=== PATIENT | male | born 1980 | race Native Hawaiian/Other Pacific Islander ===

== ENCOUNTER 2018-05-23 17:05 | Inpatient (IN) ==
[2018-05-23] MEDS ORDERED: Sod Chloride 0.9% Inj 1,000 ML IV.SIG ONE (18:00)
[2018-05-23] MEDS ORDERED: Morphine Inj 4 MG/ML Vial IV.PUSH ONE (18:01)
[2018-05-23] MEDS ORDERED: Vancomycin Inj 1 GM/200 ML PIGGYBACK IV.SIG ONE (18:04)
--- NOTE | 2018-05-23 18:09 | ED ---
HPI General Chief complaint: Skin/Abscess/Foreign Body Stated complaint: skin Time Seen by Provider: 05/23/18 18:00 History of Present Illness HPI narrative: 37-year-old male with history of hidradenitis suppurativa who presents for evaluation of buttock/groin pain, redness, purulent drainage. He reports that he has been battling his condition for years, gradually getting worse. He reports that for the past few months he has had worsening pain in swelling and drainage in the groin region. He reports that one month ago he was started on rifampin 500 mg twice a day and clindamycin 300 mg twice a day which she has been using as prescribed by his benchroom shop optician. Symptoms have worsened over the past several days. He called his benchroom shop optician who recommended that he come to the emergency room. He reports chills and myalgias as well. Symptoms are are moderate, aggravated by sitting with no alleviating factors. He has no other complaints at this time. Related Data Home Medications Medication Instructions Recorded Confirmed clindamycin HCl 300 mg PO BID 05/23/18 05/23/18 escitalopram oxalate 10 mg PO DAILY 05/23/18 05/23/18 hydrocodone-acetaminophen 1 tab PO Q4-6H PRN 05/23/18 05/23/18 hydroxyzine HCl 25 mg PO HS 05/23/18 05/23/18 rifampin 300 mg PO BID 05/23/18 05/23/18 tramadol 50 mg PO Q6H PRN 05/23/18 05/23/18 Allergies Allergy/AdvReac Type Severity Reaction Status Date / Time Penicillins Allergy allergy Verified 05/23/18 18:00 Review of Systems ROS: all other systems reviewed are negative PMFSH Medical History Medical History Depression (Acute) Hidradenitis (Acute) Social History Social History Substance History: No History of Abuse Second Hand Smoke Exposure: Yes Smoking Status: Current every day smoker Tobacco Type: Cigarettes How Often Do You Have a Drink Containing Alcohol: Monthly or less Recent Travel in [facility] within the Last 8 Weeks: No Recent Out of Country Travel within the Last 8 Weeks: No Exam Narrative Exam Narrative: GENERAL: Well-developed well-nourished male who appears uncomfortable on initial examination. SKIN: Warm and dry. Multiple scarred nodules are noted to the bilateral buttocks, groin and proximal thighs, axillary regions. There is erythema to the buttocks bilaterally and medial proximal thighs. There are areas of purulent drainage on the medial aspect of the thighs. A wound culture was obtained. HEAD: Atraumatic. Normocephalic. EYES: Pupils equal and round. No scleral icterus. No injection or drainage. ENT: No nasal bleeding or discharge. Mucous membranes pink and moist. NECK: Trachea midline. No JVD. CARDIOVASCULAR: Regular rate and rhythm. No murmur appreciated. RESPIRATORY: No accessory muscle use. Clear to auscultation. Breath sounds equal bilaterally. GASTROINTESTINAL: Abdomen soft, non-tender, nondistended. Hepatic and splenic margins not palpable. MUSCULOSKELETAL: No obvious deformities. No clubbing. No cyanosis. No edema. NEUROLOGICAL: Awake and alert. No obvious cranial nerve deficits. Motor grossly within normal limits. Normal speech. Course Initial Documented Vital Signs Temperature 99.6 F 05/23/18 17:36 Pulse Rate 106 H 05/23/18 17:36 Respiratory Rate 18 05/23/18 17:36 Blood Pressure 115/71 05/23/18 17:36 Pulse Oximetry 100 05/23/18 17:36 Last Documented Vital Signs Temperature 99.9 F H 05/23/18 17:38 Pulse Rate 93 H 05/23/18 17:38 Respiratory Rate 16 05/23/18 18:44 Blood Pressure 112/68 05/23/18 17:38 Pulse Oximetry 98 05/23/18 17:38 Medical Decision Making MDM Narrative Medical decision making narrative: This is a patient with history of hidradenitis who presents with worsening buttocks and groin pain, redness, drainage, despite being on clindamycin and rifampin for 1 month. On examination he has evidence of hidradenitis with active infectious process in the bilateral proximal thighs and groin region. There is purulent drainage and a wound culture was obtained. His initial vital signs reveal heart rate of 106 and a temperature of 99.6. Lab work, CT of the pelvis, blood cultures will be obtained. The patient reports an allergy to penicillin. He was given IV Levaquin and vancomycin. Lab work is been reviewed. The patient has leukocytosis with WBC count of 17.1. CT pelvis reveals increased density in the subcutaneous fat of the posterior and inferior medial gluteus regions bilaterally more prominent on the left. Extending into the perineum. There is some air within the subcutaneous soft tissues on the left which would be consistent with superficial skin inflammatory/infectious process which is also consistent with examination. This is been slowly worsening for the past few weeks which would not be consistent with necrotizing fasciitis or fourniers. He does require admission for IV antibiotic therapy however as his symptoms have been worsening despite outpatient treatment. He is agreeable. Medical Screen Exam Complete: Yes Emergency Medical Condition: Yes Differential Diagnosis Differential Diagnosis: Cellulitis failed outpatient therapy, abscess, hidradenitis, sepsis, necrotizing fasciitis Lab Data Result diagrams: 05/23/18 18:25 05/23/18 18:25 Lab Results 05/23/18 05/23/18 05/23/18 Range/Units 18:25 18:25 18:25 WBC 17.1 H (4.0-11.0) th/mm3 RBC 4.46 L (4.50-5.90) mil/mm3 Hgb 11.2 L (13.0-17.0) gm/dL Hct 35.0 L (39.0-51.0) % MCV 78.4 L (80.0-100.0) fL MCH 25.2 L (27.0-34.0) pg MCHC 32.1 (32.0-36.0) % RDW 15.7 (11.6-17.2) % Plt Count 513 H (150-450) th/mm3 MPV 7.2 (7.0-11.0) fL Neut % (Auto) 82.2 H (16.0-70.0) % Lymph % (Auto) 10.7 (9.0-44.0) % [place] % (Auto) 5.1 (0.0-8.0) % Eos % (Auto) 1.8 (0.0-4.0) % Baso % (Auto) 0.2 (0.0-2.0) % Neut # (Auto) 14.1 H (1.8-7.7) th/mm3 Lymph # (Auto) 1.8 (1.0-4.8) th/mm3 [place] # (Auto) 0.9 (0.0-0.9) th/mm3 Eos # (Auto) 0.3 (0.0-0.4) th/mm3 Baso # (Auto) 0.0 (0.0-0.2) th/mm3 WBC Differential . Differential Comment Auto diff final Sodium 136 (136-145) meq/L Potassium 4.5 (3.5-5.1) meq/L Chloride 102 (98-107) meq/L Carbon Dioxide 28.4 (21.0-32.0) meq/L Anion Gap 6 (5-15) meq/L BUN 7 (7-18) mg/dL Creatinine 0.99 (0.60-1.30) mg/dL Estimated GFR 84 L (>89) mL/min Random Glucose 86 (74-106) mg/dL Lactic Acid 1.6 (0.4-2.0) mmol/L Calcium 8.6 (8.5-10.1) mg/dL Total Bilirubin 0.2 (0.2-1.0) mg/dL AST 25 (15-37) U/L ALT 15 (12-78) U/L Alkaline Phosphatase 76 (45-117) U/L Total Protein 9.0 H (6.4-8.2) g/dL Albumin 2.5 L (3.4-5.0) g/dL Imaging Data Radiologist's impression: Pelvis CT 05/23/18 18:00 CONCLUSION: 1. Increased density seen in the subcutaneous fat at the posterior and inferior medial gluteal regions bilaterally being more prominent on the left. Extends into the perineum. There is some air within the subcutaneous soft tissues on the left. This would be consistent with a superficial skin inflammatory/infectious process. No abscess is seen. 2. Inguinal adenopathy. 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 Discharge Plan Discharge Disposition Patient Disposition: 30 Still Patient Discharge Condition Condition: Stable Discharge Details Diagnosis: Cellulitis of multiple sites of buttock, Hidradenitis suppurativa Physicians Team ED Provider: Kym Ramirez ED Midlevel Provider: Issa Javed Primary Care Provider: NON STAFF,PROVIDER Rxs /Orders / Referrals /Forms Prescriptions: No Action clindamycin HCl 300 mg Capsule 300 mg PO BID RF: 0 hydrocodone-acetaminophen 5-325 mg Tablet 1 tab PO Q4-6H PRN (Reason: Pain) RF: 0 tramadol 50 mg Tablet 50 mg PO Q6H PRN (Reason: Pain) RF: 0 rifampin 300 mg Capsule 300 mg PO BID RF: 0 hydroxyzine HCl 25 mg Tablet 25 mg PO HS RF: 0 escitalopram oxalate 10 mg Tablet 10 mg PO DAILY RF: 0 Status ED Status: With Doctor
[2018-05-23 18:33] LABS: Baso % (Auto) 0.2 % (0.0-2.0); Eos # (Auto) 0.3 th/mm3 (0.0-0.4); Eos % (Auto) 1.8 % (0.0-4.0); Hemoglobin 11.2 gm/dL (13.0-17.0); Lymph # (Auto) 1.8 th/mm3 (1.0-4.8); Lymph % (Auto) 10.7 % (9.0-44.0); Mean Corpuscular HGB Conc 32.1 % (32.0-36.0); Mean Corpuscular Hemoglobin 25.2 pg (27.0-34.0); Mean Corpuscular Volume 78.4 fL (80.0-100.0); Mean Platelet Volume 7.2 fL (7.0-11.0); Mono # (Auto) 0.9 th/mm3 (0.0-0.9); Mono % (Auto) 5.1 % (0.0-8.0); Neut # (Auto) 14.1 th/mm3 (1.8-7.7); Neut % (Auto) 82.2 % (16.0-70.0); Platelet Count 513 th/mm3 (150-450); Red Blood Count 4.46 mil/mm3 (4.50-5.90); Red Cell Distribution Width 15.7 % (11.6-17.2); White Blood Count 17.1 th/mm3 (4.0-11.0)
[2018-05-23 19:00] LABS: Alanine Aminotransferase 15 U/L (12-78)
[2018-05-23 19:03] LABS: Alkaline Phosphatase 76 U/L (45-117)
[2018-05-23 19:14] LABS: Albumin 2.5 g/dL (3.4-5.0); Anion Gap 6 meq/L (5-15); Aspartate Aminotransferase 25 U/L (15-37); Blood Urea Nitrogen 7 mg/dL (7-18); Calcium 8.6 mg/dL (8.5-10.1); Carbon Dioxide 28.4 meq/L (21.0-32.0); Chloride 102 meq/L (98-107); Glomerular Filtration Rate 84 mL/min (>89); Glucose,Random 86 mg/dL (74-106); Potassium 4.5 meq/L (3.5-5.1); Sodium 136 meq/L (136-145)
--- NOTE | 2018-05-23 19:35 | CT ---
EXAM DATE: 05/23/2018 6:17 PM EDT AGE/SEX: 37 years / Male INDICATIONS: Hidradenitis on buttock and inguinal area. Evaluate for abscess. CLINICAL DATA: This is the patient's initial encounter. Patient reports that signs and symptoms have been present for 3 days and indicates a pain score of 7/10. MEDICAL/SURGICAL HISTORY: None. None. RADIATION DOSE: 5.29 CTDI (mGy) COMPARISON: No prior exams available for comparison. TECHNIQUE: Multiple contiguous helical axial images were obtained through pelvis following bolus inf usion of 75 ml Omnipaque 350 (iohexol) nonionic water-soluble contrast as a single exam dose. Imag es were obtained using multiple row detector helical technique. . Using automated exposure control an d adjustment of the mA and/or kV according to patient size, radiation dose was kept as low as reasona monica achievable to obtain optimal diagnostic quality images. DICOM format image data is available wm ctronically for review and comparison. FINDINGS: There is increased density seen in the subcutaneous fat over the gluteal regions bilaterally being mo re prominent on the left. This extends inferiorly along the gluteal fold and into the perineum and in feriorly to the medial upper thighs bilaterally being more prominent on the left. There is air within the subcutaneous superficial inflammatory process on the left side. Bowel/Mesentery: The bowel is unremarkable. Bladder: Contours are smooth. No filling defects are seen on the delayed images. Retroperitoneum: No evidence of deep pelvic adenopathy. Reproductive Organs: No abnormal masses or calcifications seen. Inguinal: There are prominent lymph nodes in the inguinal regions bilaterally. Bony Structures: Pars defects are seen at L5. There is mild anterior subluxation of L5 on S1. There are some mild bulging of the L5-S1 disc. Free Fluid: None seen. Post Contrast: No abnormal areas of enhancement seen. Other: There appears to be an incidental lipoma in the right lateral abdominal musculature measuring 2.1 x 1.1 cm. CONCLUSION: 1. Increased density seen in the subcutaneous fat at the posterior and inferior medial gluteal regio ns bilaterally being more prominent on the left. Extends into the perineum. There is some air within the subcutaneous soft tissues on the left. This would be consistent with a superficial skin inflammat ory/infectious process. No abscess is seen. 2. Inguinal adenopathy. 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 Electronically signed by: Sunil Bonilla MD 05/23/2018 7:34 PM EDT
[2018-05-23] MEDS ORDERED: Vancomycin Inj 1,000 MG in Sodium Chlor 0.9% Inj 250 ML IV.SIG ONE (20:00)
[2018-05-23] MEDS ORDERED: Bisacodyl 10 MG Supp RECTAL PRN (21:56)
[2018-05-23] MEDS ORDERED: Vancomycin Consult Pharmacy 1 EACH OTHER SCH (22:00)
--- NOTE | 2018-05-23 22:12 | P.HP ---
History of Present Illness Service: CP hospitalist Primary Care Physician: PROVIDER NON STAFF Chief Complaint: Sent by senior net engineer increasing pelvic and lower extremity cellulitis History of Present Illness: HPI narrative: 37-year-old male with history of hidradenitis suppurativa who presents for evaluation of buttock/groin pain, redness, purulent drainage. He reports that he has been battling his condition for years, gradually getting worse. He reports that for the past few months he has had worsening pain in swelling and drainage in the groin region. He reports that one month ago he was started on rifampin 500 mg twice a day and clindamycin 300 mg twice a day which she has been using as prescribed by his senior net engineer. Symptoms have worsened over the past several days. He called his senior net engineer who recommended that he come to the emergency room. He reports chills and myalgias as well. Symptoms are are moderate, aggravated by sitting with no alleviating factors. He has no other complaints at this time. In the ER patient was started on Levaquin and vancomycin cultures of the wounds have been obtained also blood as patient does have a white blood cell count of 17,000. Based on repeat labs in the morning he may need infectious disease consult. Denies chest pain shortness of breath nausea vomiting diarrhea. - Diagnosis (1) Cellulitis of multiple sites of buttock (2) Hidradenitis suppurativa Inpatient Certification: I certify that the inpatient services were ordered in accordance with Medicare regulations governing the order. This includes certification that hospital inpatient services are reasonable and necessary and in the case of services not specified as inpatient-only under 42 CFR 419.22(n), that they are appropriately provided as inpatient services in accordance to with the 2-midnight benchmark under 43 CFR 412.3(e) Estimated Total Length of Stay (Days): 3 Plans for Post Hospital Care: Not yet determined Review of Systems All other systems reviewed negative except as stated in HPI PMFSH - History History Provided By: Patient - Medical History Medical History: Medical History (Last Reviewed 05/23/18 @ 22:06 by Huy Smith MD) Depression Hidradenitis - Tobacco History Second Hand Smoke Exposure: Yes Tobacco Use In Past 30 Days: Yes Smoking Status: Current every day smoker Tobacco Type: Cigarettes - Alcohol History How Often Do You Have a Drink Containing Alcohol: Monthly or less - Substance Use History Substance History: No History of Abuse - Travel History Recent Travel in the [place] Within the Last 8 Weeks: No Recent Travel Out of the Country Within the Last 8 Weeks: No - Immunization History Tetanus Immunization: <5 Years Medications and Allergies Active Medications: Active Medications Hydrocodone Bitart/Acetaminophen ([place] 5/325) 1 tab PO Q4-6H PRN PRN Reason: Pain Al Hydroxide/Mg Hydroxide (Milk Of Magnesia Liq) 30 ml PO Q12H PRN PRN Reason: Mild Constipation Bisacodyl (Dulcolax Supp) 10 mg RECTAL DAILY PRN PRN Reason: SEVERE CONSITIPATION Escitalopram Oxalate (Lexapro) 10 mg PO DAILY SUE Hydroxyzine HCl (Atarax) 25 mg PO HS [facility] Pharmacy Profile Note (Vancomycin Consult Pharmacy) 0 mls @ 0 mls/hr OTHER UNSCH SUE Levofloxacin/Dextrose (Levaquin 750 Mg Premix Inj) 150 mls @ 100 mls/hr IV.SIG Q24H SUE Lactulose (Lactulose Liq) 30 ml PO DAILY PRN PRN Reason: SEVERE CONSITIPATION Senna/Docusate Sodium (Alta-Colace) 1 tab PO BID [facility] Sennosides (Senokot) 17.2 mg PO Q12H PRN PRN Reason: Moderate Constipation Sodium Chloride (Ns Flush) 2 ml IV.FLUSH PRN PRN PRN Reason: FLUSH AFTER USING IV ACCESS Last Admin: 05/23/18 21:15 Dose: 2 ml Allergies Allergy/AdvReac Type Severity Reaction Status Date / Time Penicillins Allergy allergy Verified 05/23/18 18:00 Home Medications Medication Instructions Recorded Confirmed Type clindamycin HCl 300 mg PO BID 05/23/18 05/23/18 History escitalopram oxalate 10 mg PO DAILY 05/23/18 05/23/18 History hydrocodone-acetaminophen 1 tab PO Q4-6H PRN 05/23/18 05/23/18 History hydroxyzine HCl 25 mg PO HS 05/23/18 05/23/18 History rifampin 300 mg PO BID 05/23/18 05/23/18 History tramadol 50 mg PO Q6H PRN 05/23/18 05/23/18 History Exam Vital signs: Vital Signs 05/23/18 17:36 05/23/18 17:38 05/23/18 18:44 Temperature 99.6 F 99.9 F H Pulse Rate 106 H 93 H Respiratory Rate 18 20 16 Blood Pressure 115/71 112/68 Pulse Oximetry 100 98 05/23/18 21:16 Temperature Pulse Rate 88 Respiratory Rate 16 Blood Pressure 110/70 Pulse Oximetry 97 Intake & Output 05/23/18 05/23/18 05/24/18 06:59 18:59 06:59 Intake Total 150 / 150 Balance 150 / 150 Weight 55.338 kg Intake: IV 150 / 150 Levaquin 750 mg Premix Inj 150 150 / 150 ML @ 100 mls/hr IV.SIG ONCE ONE Rx#:[id number] Narrative: GENERAL: SKIN: Warm and dry.multiple scarred nodules noted bilateral buttocks,groin, proximal thighs,,erythema to buttocks bilaterally and thighs,areas of purelent drainage HEAD: Normocephalic. EYES: No scleral icterus. No injection or drainage. NECK: Supple, trachea midline. No JVD or lymphadenopathy. CARDIOVASCULAR: Regular rate and rhythm without murmurs, gallops, or rubs. RESPIRATORY: Breath sounds equal bilaterally. No accessory muscle use. GASTROINTESTINAL: Abdomen soft, non-tender, nondistended. MUSCULOSKELETAL: No cyanosis, or edema. BACK: Nontender without obvious deformity. No CVA tenderness. Results - Labs CBC & Chem 7: 05/23/18 18:25 05/23/18 18:25 Labs: Laboratory Results - last 24 hr 05/23/18 05/23/18 05/23/18 18:25 18:25 18:25 WBC 17.1 H RBC 4.46 L Hgb 11.2 L Hct 35.0 L MCV 78.4 L MCH 25.2 L MCHC 32.1 RDW 15.7 Plt Count 513 H MPV 7.2 Neut % (Auto) 82.2 H Lymph % (Auto) 10.7 [place] % (Auto) 5.1 Eos % (Auto) 1.8 Baso % (Auto) 0.2 Neut # (Auto) 14.1 H Lymph # (Auto) 1.8 [place] # (Auto) 0.9 Eos # (Auto) 0.3 Baso # (Auto) 0.0 WBC Differential . Differential Comment Auto diff final Sodium 136 Potassium 4.5 Chloride 102 Carbon Dioxide 28.4 Anion Gap 6 BUN 7 Creatinine 0.99 Estimated GFR 84 L Random Glucose 86 Lactic Acid 1.6 Calcium 8.6 Total Bilirubin 0.2 AST 25 ALT 15 Alkaline Phosphatase 76 Total Protein 9.0 H Albumin 2.5 L - Imaging Impressions Pelvis CT 05/23/18 18:00 CONCLUSION: 1. Increased density seen in the subcutaneous fat at the posterior and inferior medial gluteal regions bilaterally being more prominent on the left. Extends into the perineum. There is some air within the subcutaneous soft tissues on the left. This would be consistent with a superficial skin inflammatory/infectious process. No abscess is seen. 2. Inguinal adenopathy. 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 Caprini VTE Risk Assessment Caprini VTE Risk Assessment: No/Low Risk (score <= 1) Caprini Risk Assessment Model: Point Value = 1 Point Value = 2 Point Value = 3 Point Value = 5 Age 41-60 Minor surgery BMI > 25 kg/m2 Swollen legs Varicose veins or History of unexplained or recurrent spontaneous Oral contraceptives or hormone replacement Sepsis (< 1 month) Serious lung disease, including pneumonia (< 1 month) Abnormal pulmonary function Acute myocardial infarction Congestive heart failure (< 1 month) History of inflammatory bowel disease Medical patient at bed rest Age 61-74 Arthroscopic surgery Major open surgery (> 45 min) Laparoscopic surgery (> 45 min) Malignancy Confined to bed (> 72 hours) Immobilizing plaster cast Central venous access Age >= 75 History of VTE Family history of VTE Factor V Leiden Prothrombin [id number] Lupus anticoagulant Anticardiolipin antibodies Elevated serum homocysteine Heparin-induced thrombocytopenia Other congenital or acquired thrombophilia Stroke (< 1 month) Elective arthroplasty Hip, pelvis, or leg fracture Acute spinal cord injury (< 1 month) Prophylaxis Regimen: Total Risk Factor Score Risk Level Prophylaxis Regimen 0-1 Low Early ambulation 2 Moderate Order ONE of the following: *Sequential Compression Device (SCD) *Heparin 5000 units SQ BID 3-4 Higher Order ONE of the following medications: *Heparin 5000 units SQ TID *Enoxaparin/Lovenox 40 mg SQ daily (WT < 150 kg, CrCl > 30 mL/min) *Enoxaparin/Lovenox 30 mg SQ daily (WT < 150 kg, CrCl > 10-29 mL/min) *Enoxaparin/Lovenox 30 mg SQ BID (WT < 150 kg, CrCl > 30 mL/min) AND/OR *Sequential Compression Device (SCD) 5 or more Highest Order ONE of the following medications: *Heparin 5000 units SQ TID (Preferred with Epidurals) *Enoxaparin/Lovenox 40 mg SQ daily (WT < 150 kg, CrCl > 30 mL/min) *Enoxaparin/Lovenox 30 mg SQ daily (WT < 150 kg, CrCl > 10-29 mL/min) *Enoxaparin/Lovenox 30 mg SQ BID (WT < 150 kg, CrCl > 30 mL/min) AND *Sequential Compression Device (SCD) Assessment and Plan - Assessment (1) Cellulitis of multiple sites of buttock Code(s): L03.317 - Cellulitis of buttock Status: Acute Plan: CT pelvis shows increased density in the subcutaneous fat of the posterior inferior medial gluteus regions bilaterally which extend into the perineum on CT there was subcutaneous soft tissue air consistent with a superficial inflammatory infectious process patient was started on vancomycin as well as Levaquin as he has an allergy to insulin and will follow-up labs (2) Hidradenitis suppurativa Code(s): L73.2 - Hidradenitis suppurativa Status: Acute Plan: As above IV antibiotic - Plan Further plan as case develops patient may need infectious disease consult as well Code Status: Full Discussed Condition With: Patient
[2018-05-24] MEDS: Morphine Inj 4 MG/ML Vial IV.PUSH PRN ×4 (00:59→19:09)
[2018-05-24 06:51] LABS: Baso # (Auto) 0.1 th/mm3 (0.0-0.2); Baso % (Auto) 0.4 % (0.0-2.0); Eos # (Auto) 0.3 th/mm3 (0.0-0.4); Eos % (Auto) 2.2 % (0.0-4.0); Hematocrit 32.5 % (39.0-51.0); Hemoglobin 10.1 gm/dL (13.0-17.0); Lymph # (Auto) 1.6 th/mm3 (1.0-4.8); Mean Corpuscular Hemoglobin 24.5 pg (27.0-34.0); Mean Corpuscular Volume 79.1 fL (80.0-100.0); Mono # (Auto) 0.9 th/mm3 (0.0-0.9); Mono % (Auto) 6.3 % (0.0-8.0); Neut # (Auto) 10.7 th/mm3 (1.8-7.7); Neut % (Auto) 79.1 % (16.0-70.0); Platelet Count 415 th/mm3 (150-450); Red Blood Count 4.11 mil/mm3 (4.50-5.90); Red Cell Distribution Width 15.2 % (11.6-17.2); White Blood Count 13.5 th/mm3 (4.0-11.0)
[2018-05-24 06:58] LABS: Mean Corpuscular HGB Conc 30.9 % (32.0-36.0)
[2018-05-24 07:11] LABS: Alanine Aminotransferase 8 U/L (12-78); Anion Gap 6 meq/L (5-15); Aspartate Aminotransferase 9 U/L (15-37); Blood Urea Nitrogen 6 mg/dL (7-18); Calcium 7.9 mg/dL (8.5-10.1); Chloride 103 meq/L (98-107); Glomerular Filtration Rate Greater Than 89 mL/min (>89); Glucose,Random 91 mg/dL (74-106); Potassium 4.2 meq/L (3.5-5.1); Sodium 140 meq/L (136-145)
[2018-05-24 07:12] LABS: Alkaline Phosphatase 61 U/L (45-117)
[2018-05-24] MEDS: Senna/Docusate Sodium 8.6/50 MG Tablet PO SCH ×2 (08:00→20:55)
[2018-05-24] MEDS: Escitalopram 10 MG Tablet PO SCH (08:00)
[2018-05-24] MEDS ORDERED: Influenza (Quadrivalent) Vaccine 0.5 ML Syringe IM ONE (09:00)
[2018-05-24] MEDS: Vancomycin Inj 650 MG in Sodium Chlor 0.9% Inj 250 ML IV.SIG SCH ×2 (10:10→20:55)
--- NOTE | 2018-05-24 12:59 | P.PNIM ---
Subjective Interval history: Follow up: Hidradenitis suppurativa and Cellulitis of multiple sites of buttock Patient endorses multiple areas of draining wounds (Right axilla, bilateral groin and bilateral buttocks) theses areas have been intermittently draining over since 2013 Patient has previously had excision of the right axilla patient has follows with outpatient dermatology Dr. Joshua and SEFERINO Dhaliwal and has previously been on Zyvox, ciprofloxacin, rifampin and clindamycin Physical Exam Vital signs: Vital Signs 05/23/18 17:36 05/23/18 17:38 05/23/18 18:44 Temperature 99.6 F 99.9 F H Pulse Rate 106 H 93 H Respiratory Rate 18 20 16 Blood Pressure 115/71 112/68 Pulse Oximetry 100 98 05/23/18 21:16 05/24/18 00:00 05/24/18 04:00 Temperature 100.3 F H 99.2 F Pulse Rate 88 98 H 98 H Respiratory Rate 16 18 18 Blood Pressure 110/70 101/52 L 96/53 L Pulse Oximetry 97 96 99 05/24/18 08:00 05/24/18 12:00 Temperature 98.5 F 99.0 F Pulse Rate 78 73 Respiratory Rate 18 18 Blood Pressure 92/55 L 86/50 L Pulse Oximetry 98 97 Intake & Output 05/23/18 05/24/18 05/24/18 18:59 06:59 18:59 Intake Total 1400 / 1400 256.5 / 256.5 Balance 1400 / 1400 256.5 / 256.5 Weight 55.338 kg 55.8 kg Intake: IV 1400 / 1400 256.5 / 256.5 Levaquin 750 mg Premix Inj 150 150 / 150 ML @ 100 mls/hr IV.SIG ONCE ONE Rx#:[id number] Vancomycin Inj 1,000 MG In NS 250 / 250 Inj 250 ML @ 200 mls/hr IV.SIG ONCE ONE Rx#:[id number] Vancomycin Inj 650 MG In NS Inj 256.5 / 256.5 250 ML @ 250 mls/hr IV.SIG Q12H [facility] Rx#:[id number] Other: # Voids 3 Date of Last Bowel Movement 05/24/18 Weight On Admission 55.9 kg Narrative: GENERAL: thin 37 year old male patient, in no acute distress SKIN: Warm and dry.multiple nodules noted bilateral buttocks, induration left buttock, bilateral groin, proximal thighs,erythema to buttocks bilaterally and thighs,areas of purulent drainage right axilla, bilateral buttocks and bilateral groin. HEAD: Normocephalic. EYES: No scleral icterus. No injection or drainage. CARDIOVASCULAR: Regular rate and rhythm RESPIRATORY: Breath sounds equal bilaterally. No accessory muscle use. GASTROINTESTINAL: Abdomen soft, non-tender, nondistended. Results - Labs CBC & Chem 7: 05/26/18 10:28 05/25/18 08:45 Laboratory Results - last 24 hr 05/23/18 05/23/18 05/23/18 18:25 18:25 18:25 WBC 17.1 H RBC 4.46 L Hgb 11.2 L Hct 35.0 L MCV 78.4 L MCH 25.2 L MCHC 32.1 RDW 15.7 Plt Count 513 H MPV 7.2 Neut % (Auto) 82.2 H Lymph % (Auto) 10.7 [place] % (Auto) 5.1 Eos % (Auto) 1.8 Baso % (Auto) 0.2 Neut # (Auto) 14.1 H Lymph # (Auto) 1.8 [place] # (Auto) 0.9 Eos # (Auto) 0.3 Baso # (Auto) 0.0 WBC Differential . Differential Comment Auto diff final Sodium 136 Potassium 4.5 Chloride 102 Carbon Dioxide 28.4 Anion Gap 6 BUN 7 Creatinine 0.99 Estimated GFR 84 L Random Glucose 86 Lactic Acid 1.6 Calcium 8.6 Total Bilirubin 0.2 AST 25 ALT 15 Alkaline Phosphatase 76 Total Protein 9.0 H Albumin 2.5 L 05/24/18 05/24/18 05:52 05:52 WBC 13.5 H RBC 4.11 L Hgb 10.1 L Hct 32.5 L MCV 79.1 L MCH 24.5 L MCHC 30.9 L RDW 15.2 Plt Count 415 MPV 7.0 Neut % (Auto) 79.1 H Lymph % (Auto) 12.0 [place] % (Auto) 6.3 Eos % (Auto) 2.2 Baso % (Auto) 0.4 Neut # (Auto) 10.7 H Lymph # (Auto) 1.6 [place] # (Auto) 0.9 Eos # (Auto) 0.3 Baso # (Auto) 0.1 WBC Differential . Differential Comment Auto diff final Sodium 140 Potassium 4.2 Chloride 103 Carbon Dioxide 31.0 Anion Gap 6 BUN 6 L Creatinine 0.89 Estimated GFR Greater than 89 Random Glucose 91 Lactic Acid Calcium 7.9 L Total Bilirubin 0.1 L AST 9 L ALT 8 L Alkaline Phosphatase 61 Total Protein 7.0 D Albumin 2.0 L Microbiology 05/23/18 18:25 Blood - Peripheral Aerobic Blood Culture - Preliminary No growth in 1 day 05/23/18 18:25 Blood - Peripheral Anaerobic Blood Culture - Preliminary No growth in 1 day 05/23/18 18:20 Blood - Peripheral Aerobic Blood Culture - Preliminary No growth in 1 day 05/23/18 18:20 Blood - Peripheral Anaerobic Blood Culture - Preliminary No growth in 1 day 05/23/18 18:20 Abscess - Buttock Gram Stain - Final - Imaging Impressions Pelvis CT 05/23/18 18:00 CONCLUSION: 1. Increased density seen in the subcutaneous fat at the posterior and inferior medial gluteal regions bilaterally being more prominent on the left. Extends into the perineum. There is some air within the subcutaneous soft tissues on the left. This would be consistent with a superficial skin inflammatory/infectious process. No abscess is seen. 2. Inguinal adenopathy. 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 Assessment and Plan - Assessment (1) Hidradenitis suppurativa Code(s): L73.2 - Hidradenitis suppurativa Status: Acute Plan: Hidradenitis suppurativa and Cellulitis of Right axilla, bilateral groin and bilateral buttocks per patient these areas have been intermittently draining over since 2013 Patient has previously had excision of the right axilla patient has follows with outpatient dermatology Dr. Joshua and ID Paz Dhaliwal and has previously been on Zyvox, ciprofloxacin, rifampin and clindamycin Currently on Levaquin and vancomycin (with pharmacy consult) Consult ID Consult plastic surgery, 05/24 Dr. Mane discussed the case with Dr. Royal who agrees to see the patient today multiple wound cultures taken blood cultures pending [place] and Morphine as needed for pain Check RPR, hepatitis panel, HIV, CMP, PT, PTT and chlamydia (with patient's consent) Depression Continue home Lexapro DVT prophylaxis with SCDs (2) Cellulitis of multiple sites of buttock Code(s): L03.317 - Cellulitis of buttock Status: Acute - Attending Attestation Patient examined. Assessment and plan formulated with Felicitas Darden PA-C. I agree with the above.
--- NOTE | 2018-05-24 13:37 | XR ---
EXAM DATE: 05/24/2018 12:00 AM EDT AGE/SEX: 37 years / Male INDICATIONS: No chest pain or shortness of breath. CLINICAL DATA: This is the patient's initial encounter. Patient reports that signs and symptoms have been present for 1 day and indicates a pain score of 0/10. MEDICAL/SURGICAL HISTORY: . Hidradenitis on buttock and inguinal area None. COMPARISON: No prior exams available for comparison. FINDINGS: A single AP view of the chest demonstrates the lungs to be symmetrically aerated without evidence of mass, infiltrate or effusion. The cardiomediastinal contours are unremarkable. Osseous structures a re intact. CONCLUSION: Negative for an acute process Electronically signed by: Sonu Merino MD 05/24/2018 1:36 PM EDT
[2018-05-24 13:38] LABS: Activated Partial Thrombo Time 35.5 sec (24.3-30.1); Prothrombin Time 10.3 sec (9.8-11.6)
[2018-05-24 14:45] LABS: Hepatitis A IgM Antibody Nonreactive (Nonreactive)
[2018-05-24 15:04] LABS: Hepatitits B Surface Antigen Nonreactive (Nonreactive)
--- NOTE | 2018-05-24 15:50 | P.CONID ---
History of Present Illness Service: Infectious Disease Consult date: 05/24/18 Requesting Physician: Getachew Mane Reason for Consult: Evaluation and Mment of abscesses right axilla, bilateral buttocks,groin. Primary Care Provider: PROVIDER NON STAFF Chief Complaint: Sent by warper creeler increasing pelvic and lower extremity cellulitis History of Present Illness: is a 37 y/o [place] male with history of hidradenitis suppurativa who presents for evaluation of buttock/groin pain, redness and purulent drainage. He reports that he has been battling his condition for years, gradually getting worse. He reports that for the past few months he has had worsening pain in swelling and drainage in the groin region. He reports that one month ago he was started on rifampin 500 mg twice a day and clindamycin 300 mg twice a day which she has been using as prescribed by his warper creeler. Symptoms have worsened over the past several days. He called his warper creeler who recommended that he come to the emergency room. In the ER patient was started on Levaquin and vancomycin cultures of the wounds have been obtained also blood as patient does have a white blood cell count of 17,000. Based on repeat labs in the morning he may need infectious disease consult. Denies chest pain shortness of breath nausea vomiting diarrhea. He reports chills and myalgias as well. Pain symptoms are are moderate, aggravated by sitting with no alleviating factors. He has no other complaints at this time. He reports no prior botox injections at this site says his disease was too advanced per dermatology and was recommended to undergo surgery. He reports having right axillary abscess drained a year or so back and was told he may have MRSA infection but he is not sure. 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 He currently does not work. ID consulted for Evaluation and [place] of infected abscesses Right axilla, groin and buttock area secondary to Hiddradenitis suppuritiva. Review of Systems All other systems reviewed negative except as stated in HPI PMFSH - History History Provided By: Patient, Medical Record - Medical History Medical History: Medical History (Last Reviewed 05/23/18 @ 22:06 by Huy Smith MD) Depression Hidradenitis - Tobacco History Second Hand Smoke Exposure: No Tobacco Use In Past 30 Days: Yes Smoking Status: Heavy tobacco smoker Tobacco Type: Cigarettes - Alcohol History How Often Do You Have a Drink Containing Alcohol: 2 to 4 times a month - Substance Use History Substance History: No History of Abuse - Travel History Recent Travel in the USA Within the Last 8 Weeks: No Recent Travel Out of the Country Within the Last 8 Weeks: No - Immunization History Tetanus Immunization: <5 Years Hx Influenza Vaccine This Season: No Medications and Allergies Active Medications: Active Medications Hydrocodone Bitart/Acetaminophen ([place] 5/325) 1 tab PO Q4H PRN PRN Reason: PAIN SCALE 1 TO 5 Last Admin: 05/24/18 04:13 Dose: 1 tab Al Hydroxide/Mg Hydroxide (Milk Of Magnesia Liq) 30 ml PO Q12H PRN PRN Reason: Mild Constipation Bisacodyl (Dulcolax Supp) 10 mg RECTAL DAILY PRN PRN Reason: SEVERE CONSITIPATION Escitalopram Oxalate (Lexapro) 10 mg PO DAILY [facility] Last Admin: 05/24/18 08:00 Dose: 10 mg Hydroxyzine HCl (Atarax) 25 mg PO HS [facility] Pharmacy Profile Note (Vancomycin Consult Pharmacy) 0 mls @ 0 mls/hr OTHER UNSCH [facility] Levofloxacin/Dextrose (Levaquin 750 Mg Premix Inj) 150 mls @ 100 mls/hr IV.SIG Q24H [facility] Vancomycin HCl 650 mg/ Sodium (Chloride) 256.5 mls @ 250 mls/hr IV.SIG Q12H [facility] Last Infusion: 05/24/18 10:59 Dose: Infused Lactulose (Lactulose Liq) 30 ml PO DAILY PRN PRN Reason: SEVERE CONSITIPATION Miscellaneous Information ([facility] Ordered Lab Info) 0 each OTHER ONCE ONE Stop: 05/25/18 08:46 Morphine Sulfate (Morphine Inj) 4 mg IV.PUSH Q6H PRN PRN Reason: PAIN SCALE 6 TO 10 Last Admin: 05/24/18 12:01 Dose: 4 mg Senna/Docusate Sodium (Alta-Colace) 1 tab PO BID [facility] Last Admin: 05/24/18 08:00 Dose: 1 tab Sennosides (Senokot) 17.2 mg PO Q12H PRN PRN Reason: Moderate Constipation Sodium Chloride (Ns Flush) 2 ml IV.FLUSH PRN PRN PRN Reason: FLUSH AFTER USING IV ACCESS Last Admin: 05/23/18 21:15 Dose: 2 ml Allergies Allergy/AdvReac Type Severity Reaction Status Date / Time Penicillins Allergy Mild Itching Verified 05/24/18 16:25 Home Medications Medication Instructions Recorded Confirmed Type clindamycin HCl 300 mg PO BID 05/23/18 05/23/18 History escitalopram oxalate 10 mg PO DAILY 05/23/18 05/23/18 History hydrocodone-acetaminophen 1 tab PO Q4-6H PRN 05/23/18 05/23/18 History hydroxyzine HCl 25 mg PO HS 05/23/18 05/23/18 History rifampin 300 mg PO BID 05/23/18 05/23/18 History tramadol 50 mg PO Q6H PRN 05/23/18 05/23/18 History Exam Vital signs: Vital Signs 05/23/18 17:36 05/23/18 17:38 05/23/18 18:44 Temperature 99.6 F 99.9 F H Pulse Rate 106 H 93 H Respiratory Rate 18 20 16 Blood Pressure 115/71 112/68 Pulse Oximetry 100 98 05/23/18 21:16 05/24/18 00:00 05/24/18 04:00 Temperature 100.3 F H 99.2 F Pulse Rate 88 98 H 98 H Respiratory Rate 16 18 18 Blood Pressure 110/70 101/52 L 96/53 L Pulse Oximetry 97 96 99 05/24/18 08:00 05/24/18 12:00 05/24/18 13:21 Temperature 98.5 F 99.0 F 96.8 F L Pulse Rate 78 73 78 Respiratory Rate 18 18 18 Blood Pressure 92/55 L 86/50 L 105/62 Pulse Oximetry 98 97 97 Intake & Output 05/23/18 05/24/18 05/24/18 18:59 06:59 18:59 Intake Total 1400 / 1400 256.5 / 256.5 Balance 1400 / 1400 256.5 / 256.5 Weight 55.338 kg 55.8 kg Intake: IV 1400 / 1400 256.5 / 256.5 Levaquin 750 mg Premix Inj 150 150 / 150 ML @ 100 mls/hr IV.SIG ONCE ONE Rx#:[id number] Vancomycin Inj 1,000 MG In NS 250 / 250 Inj 250 ML @ 200 mls/hr IV.SIG ONCE ONE Rx#:[id number] Vancomycin Inj 650 MG In NS Inj 256.5 / 256.5 250 ML @ 250 mls/hr IV.SIG Q12H [facility] Rx#:[id number] Other: # Voids 3 Date of Last Bowel Movement 05/24/18 Weight On Admission 55.9 kg Narrative: GENERAL: Well-nourished well-developed, not in acute distress SKIN: Right axilla with scarring and tenderness noted. Purulent discharge could be expressed upon minimal pressure. Groin with tenderness and scarring noted. Bilateral right more than left tenderness and induration noted. HEAD: Atraumatic. Normocephalic. No temporal or scalp tenderness. EYES: Pupils equal round and reactive. Scleral icterus. No injection or drainage. No petechia ENT: Nothing abnormal detected NECK: Trachea midline. Supple, nontender, no meningeal signs. CARDIOVASCULAR: HS audible. RESPIRATORY: Clear to auscultation bilaterally. GASTROINTESTINAL: Abdomen soft nontender. MUSCULOSKELETAL: Extremities without clubbing, cyanosis. NEUROLOGICAL: Alert oriented 3. Nonfocal. Psych cooperative IV line sites ok. Results - Labs CBC & Chem 7: 05/24/18 05:52 05/24/18 05:52 Labs: Laboratory Results - last 24 hr 05/23/18 05/23/18 05/23/18 18:25 18:25 18:25 WBC 17.1 H RBC 4.46 L Hgb 11.2 L Hct 35.0 L MCV 78.4 L MCH 25.2 L MCHC 32.1 RDW 15.7 Plt Count 513 H MPV 7.2 Neut % (Auto) 82.2 H Lymph % (Auto) 10.7 [place] % (Auto) 5.1 Eos % (Auto) 1.8 Baso % (Auto) 0.2 Neut # (Auto) 14.1 H Lymph # (Auto) 1.8 [place] # (Auto) 0.9 Eos # (Auto) 0.3 Baso # (Auto) 0.0 WBC Differential . Differential Comment Auto diff final PT INR APTT Sodium 136 Potassium 4.5 Chloride 102 Carbon Dioxide 28.4 Anion Gap 6 BUN 7 Creatinine 0.99 Estimated GFR 84 L Random Glucose 86 Lactic Acid 1.6 Calcium 8.6 Total Bilirubin 0.2 AST 25 ALT 15 Alkaline Phosphatase 76 Total Protein 9.0 H Albumin 2.5 L Hepatitis A IgM Ab Hep Bs Antigen Hep B Core IgM Ab Hep C IgG Ab 05/24/18 05/24/18 05/24/18 05:52 05:52 13:15 WBC 13.5 H RBC 4.11 L Hgb 10.1 L Hct 32.5 L MCV 79.1 L MCH 24.5 L MCHC 30.9 L RDW 15.2 Plt Count 415 MPV 7.0 Neut % (Auto) 79.1 H Lymph % (Auto) 12.0 [place] % (Auto) 6.3 Eos % (Auto) 2.2 Baso % (Auto) 0.4 Neut # (Auto) 10.7 H Lymph # (Auto) 1.6 [place] # (Auto) 0.9 Eos # (Auto) 0.3 Baso # (Auto) 0.1 WBC Differential . Differential Comment Auto diff final PT INR APTT Sodium 140 Potassium 4.2 Chloride 103 Carbon Dioxide 31.0 Anion Gap 6 BUN 6 L Creatinine 0.89 Estimated GFR Greater than 89 Random Glucose 91 Lactic Acid Calcium 7.9 L Total Bilirubin 0.1 L AST 9 L ALT 8 L Alkaline Phosphatase 61 Total Protein 7.0 D Albumin 2.0 L Hepatitis A IgM Ab Nonreactive Hep Bs Antigen Nonreactive Hep B Core IgM Ab Nonreactive Hep C IgG Ab Nonreactive 05/24/18 13:15 WBC RBC Hgb Hct MCV MCH MCHC RDW Plt Count MPV Neut % (Auto) Lymph % (Auto) [place] % (Auto) Eos % (Auto) Baso % (Auto) Neut # (Auto) Lymph # (Auto) [place] # (Auto) Eos # (Auto) Baso # (Auto) WBC Differential Differential Comment PT 10.3 INR 1.0 APTT 35.5 H Sodium Potassium Chloride Carbon Dioxide Anion Gap BUN Creatinine Estimated GFR Random Glucose Lactic Acid Calcium Total Bilirubin AST ALT Alkaline Phosphatase Total Protein Albumin Hepatitis A IgM Ab Hep Bs Antigen Hep B Core IgM Ab Hep C IgG Ab - Imaging Impressions Pelvis CT 05/23/18 18:00 CONCLUSION: 1. Increased density seen in the subcutaneous fat at the posterior and inferior medial gluteal regions bilaterally being more prominent on the left. Extends into the perineum. There is some air within the subcutaneous soft tissues on the left. This would be consistent with a superficial skin inflammatory/infectious process. No abscess is seen. 2. Inguinal adenopathy. 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 Chest X-Ray 05/24/18 00:00 CONCLUSION: Negative for an acute process Assessment and Plan - Plan Infected abscesses Right axilla, Cellulitis and abscess possible in right groin Cellulitis and abscess in buttock area Hydradenitis suppurativa. Recs: [facility] Navas reviewed allergy: amoxicillin caused mild rash in past. No airway or lip swelling s/o severe allergy Start Cefepime IV Continue Vanco IV target 10-15. Follow cultures Follow clinical course dw patient and : about Cefepime IV challenge. Patient agreeable discussed the risk benefit ratio. Agree needs plastics evaluation to explore under anaesthesia and drain as needed.
[2018-05-25] MEDS: Morphine Inj 4 MG/ML Vial IV.PUSH PRN ×4 (00:18→18:19)
--- NOTE | 2018-05-25 05:23 | P.CON ---
History of Present Illness Service: Plastic Surgery Consult date: 05/24/18 Requesting Physician: Getachew Mane Reason for Consult: Hidradenitis multiple body areas Primary Care Provider: PROVIDER NON STAFF Chief Complaint: Sent by farm equipment maintenance supervisor increasing pelvic and lower extremity cellulitis History of Present Illness: Thanks for the consult Patient seen May 24, 2018 approx 5:30 pm Patient started noticing beginning of skin abscesses in the left axilla around 2013 - has never cleared fully. Now involves Left axilla, both medial thighs, buttocks, perineum and parts of scrotal skin. Has some rolled / thick bands of skin over the left medial thigh buttock area that makes lying on his back or left side more painful. Never had any surgical intervention. He did consult a farm equipment maintenance supervisor after his PCP care a couple of years back and has been given oral antibiotics off and on. This time around, he became much worse despite getting oral antibiotics for last 3-4 days and has been admitted at the [facility] through ER - currently on IV antibiotics. Had several wound cultures taken - pending. No local dressing or hygiene care so far. Patient is not diabetic, smokes everyday, has not smoked since in hospital. No drug abuse, no alcohol abuse. H&P reviewed, depression is the only medical issue noted besides hidradenitis. Local examination of the Left axilla showed extensive areas of hidradenitis - small openings and a fair amount of drainage - covers the arm side, axillary vault and chest wall side - over all 12-15 cm x 8 cm area. Heavy scar tracks noted, Both thighs - extensive area of hidradenitis and partial areas of keloid scars- Left side nearly twice as big, - approx 25 x 15 cm on left side. perineum and back of scrotum, both and patchy areas on both buttocks - again 20 x 15 cm aggregate or more. No acute bleeding or hematoma in the area, drainage is thin mucopurulent, slight smell. Labs and CT results reviewed - no gross deep abscess / necrotizing fasciitis findings. Rec: Discussed the nature of the disease process and relevant microanatomy. A surgical excision going beyond the glands - in normal fatty planes and excision of any deeper tracks encountered explained, possible involvement and damage to neurovascular structure - particularly in the axilla explained as well. Overall blood loss during surgery can be diminished and controlled using tumescent injection of saline and Epi, but postoperative bleeding still possible. May need blood transfusion if there is significant blood loss in perioperative period. His WBC count is high - will watch for response to the IV antibiotics, no clear signs of generalized sepsis. He should continue to get the IV antibiotics and care with the help of ID consult as well. Discussed with Dr. Mane - patient is willing to have surgery, I will try to schedule him on Sunday evening at the earliest, or possibly on Sunday. PMF - History History Provided By: Patient, Medical Record - Medical History Medical History: Medical History (Last Reviewed 05/23/18 @ 22:06 by Huy Smith MD) Depression Hidradenitis - Tobacco History Second Hand Smoke Exposure: No Tobacco Use In Past 30 Days: Yes Smoking Status: Heavy tobacco smoker Tobacco Type: Cigarettes - Alcohol History How Often Do You Have a Drink Containing Alcohol: 2 to 4 times a month - Substance Use History Substance History: No History of Abuse - Travel History Recent Travel in the [place] Within the Last 8 Weeks: No Recent Travel Out of the Country Within the Last 8 Weeks: No - Immunization History Tetanus Immunization: <5 Years Hx Influenza Vaccine This Season: No Medications and Allergies Active Medications: Active Medications Hydrocodone Bitart/Acetaminophen ([place] 5/325) 1 tab PO Q4H PRN PRN Reason: PAIN SCALE 1 TO 5 Last Admin: 05/24/18 16:24 Dose: 1 tab Al Hydroxide/Mg Hydroxide (Milk Of [place] Liq) 30 ml PO Q12H PRN PRN Reason: Mild Constipation Bisacodyl (Dulcolax Supp) 10 mg RECTAL DAILY PRN PRN Reason: SEVERE CONSITIPATION Enoxaparin Sodium (Lovenox Inj) 30 mg SQ DAILY [facility] Escitalopram Oxalate (Lexapro) 10 mg PO DAILY [facility] Last Admin: 05/24/18 08:00 Dose: 10 mg Hydroxyzine HCl (Atarax) 25 mg PO HS [facility] Last Admin: 05/24/18 20:55 Dose: 25 mg Pharmacy Profile Note (Vancomycin Consult Pharmacy) 0 mls @ 0 mls/hr OTHER UNSCH [facility] Vancomycin HCl 650 mg/ Sodium (Chloride) 256.5 mls @ 250 mls/hr IV.SIG Q12H [facility] Last Infusion: 05/24/18 21:57 Dose: Infused Cefepime HCl 2,000 mg/ Sodium (Chloride) 100 mls @ 200 mls/hr IV.SIG Q8H [facility] Last Infusion: 05/25/18 02:35 Dose: Infused Lactulose (Lactulose Liq) 30 ml PO DAILY PRN PRN Reason: SEVERE CONSITIPATION Miscellaneous Information ([facility] Ordered Lab Info) 0 each OTHER ONCE ONE Stop: 05/25/18 08:46 Morphine Sulfate (Morphine Inj) 4 mg IV.PUSH Q6H PRN PRN Reason: PAIN SCALE 6 TO 10 Last Admin: 05/25/18 00:18 Dose: 4 mg Senna/Docusate Sodium (Alta-Colace) 1 tab PO BID [facility] Last Admin: 05/24/18 20:55 Dose: Not Given Sennosides (Senokot) 17.2 mg PO Q12H PRN PRN Reason: Moderate Constipation Sodium Chloride (Ns Flush) 2 ml IV.FLUSH PRN PRN PRN Reason: FLUSH AFTER USING IV ACCESS Last Admin: 05/23/18 21:15 Dose: 2 ml Allergies Allergy/AdvReac Type Severity Reaction Status Date / Time Penicillins Allergy Mild Itching Verified 05/24/18 16:25 Home Medications Medication Instructions Recorded Confirmed Type clindamycin HCl 300 mg PO BID 05/23/18 05/23/18 History escitalopram oxalate 10 mg PO DAILY 05/23/18 05/23/18 History hydrocodone-acetaminophen 1 tab PO Q4-6H PRN 05/23/18 05/23/18 History hydroxyzine HCl 25 mg PO HS 05/23/18 05/23/18 History rifampin 300 mg PO BID 05/23/18 05/23/18 History tramadol 50 mg PO Q6H PRN 05/23/18 05/23/18 History Physical Exam Vital signs: Vital Signs 05/24/18 08:00 05/24/18 12:00 05/24/18 13:21 Temperature 98.5 F 99.0 F 96.8 F L Pulse Rate 78 73 78 Respiratory Rate 18 18 18 Blood Pressure 92/55 L 86/50 L 105/62 Pulse Oximetry 98 97 97 05/24/18 16:00 05/24/18 20:00 05/25/18 00:00 Temperature 98.6 F 99 F 100.4 F H Pulse Rate 93 H 84 81 Respiratory Rate 18 17 17 Blood Pressure 102/56 L 114/64 104/59 L Pulse Oximetry 97 98 98 Intake & Output 05/24/18 05/24/18 05/25/18 06:59 18:59 06:59 Intake Total 1400 / 1400 836.5 / 836.5 356.5 / 356.5 Balance 1400 / 1400 836.5 / 836.5 356.5 / 356.5 Weight 55.8 kg Intake: IV 1400 / 1400 356.5 / 356.5 356.5 / 356.5 Maxipime Inj 2,000 MG In NS Inj 100 / 100 100 / 100 100 ML @ 200 mls/hr IV.SIG Q8H [facility] Rx#:[id number] Levaquin 750 mg Premix Inj 150 150 / 150 ML @ 100 mls/hr IV.SIG ONCE ONE Rx#:[id number] Vancomycin Inj 1,000 MG In NS 250 / 250 Inj 250 ML @ 200 mls/hr IV.SIG ONCE ONE Rx#:[id number] Vancomycin Inj 650 MG In NS Inj 256.5 / 256.5 256.5 / 256.5 250 ML @ 250 mls/hr IV.SIG Q12H [facility] Rx#:[id number] Oral 480 / 480 Other: # Voids 3 2 Date of Last Bowel Movement 05/24/18 05/24/18 Weight On Admission 55.9 kg
[2018-05-25] MEDS ORDERED: Pharmacy Ordered Lab Info OTHER ONE (08:45)
[2018-05-25] MEDS: Escitalopram 10 MG Tablet PO SCH (08:48)
[2018-05-25] MEDS: Enoxaparin Inj 30 MG/0.3 ML Syringe SQ SCH (08:48)
[2018-05-25] MEDS: Senna/Docusate Sodium 8.6/50 MG Tablet PO SCH ×2 (08:48→20:45)
[2018-05-25] MEDS: Vancomycin Inj 650 MG in Sodium Chlor 0.9% Inj 250 ML IV.SIG SCH (08:53)
[2018-05-25 09:56] LABS: Anion Gap 4 meq/L (5-15); Aspartate Aminotransferase 9 U/L (15-37); Blood Urea Nitrogen 7 mg/dL (7-18); Calcium 8.1 mg/dL (8.5-10.1); Carbon Dioxide 28.7 meq/L (21.0-32.0); Chloride 101 meq/L (98-107); Glomerular Filtration Rate Greater Than 89 mL/min (>89); Glucose,Random 91 mg/dL (74-106); Potassium 4.1 meq/L (3.5-5.1); Sodium 134 meq/L (136-145)
[2018-05-25 09:57] LABS: Alanine Aminotransferase 9 U/L (12-78)
[2018-05-25 09:59] LABS: Alkaline Phosphatase 56 U/L (45-117); Total Protein 7.4 g/dL (6.4-8.2); Vancomycin,Trough 5.6 mcg/mL (5.0-10.0)
--- NOTE | 2018-05-25 15:06 | P.PNIM ---
Subjective Interval history: Follow up: Hidradenitis suppurativa and Cellulitis of multiple sites of buttock Patient offers no new concerns/complaints at this time surgical excision planned Sunday evening or Sunday with Plastic surgery Physical Exam Vital signs: Vital Signs 05/24/18 16:00 05/24/18 20:00 05/25/18 00:00 Temperature 98.6 F 99 F 100.4 F H Pulse Rate 93 H 84 81 Respiratory Rate 18 17 17 Blood Pressure 102/56 L 114/64 104/59 L Pulse Oximetry 97 98 98 05/25/18 04:00 05/25/18 08:00 05/25/18 12:00 Temperature 98.8 F 98.4 F 98.2 F Pulse Rate 82 84 89 Respiratory Rate 17 22 23 Blood Pressure 106/61 96/53 L 105/67 Pulse Oximetry 98 97 98 Intake & Output 05/24/18 05/25/18 05/25/18 18:59 06:59 18:59 Intake Total 836.5 / 836.5 1456.5 / 1456.5 356.5 / 356.5 Output Total / 6 Balance 836.5 / 836.5 1450.5 / 1450.5 356.5 / 356.5 Intake: IV 356.5 / 356.5 356.5 / 356.5 356.5 / 356.5 Maxipime Inj 2,000 MG In NS Inj 100 / 100 100 / 100 100 / 100 100 ML @ 200 mls/hr IV.SIG Q8H SUE Rx#:[id number] Vancomycin Inj 650 MG In NS Inj 256.5 / 256.5 256.5 / 256.5 256.5 / 256.5 250 ML @ 250 mls/hr IV.SIG Q12H SUE Rx#:[id number] Oral 480 / 480 1100 / 1100 Output: Urine / 6 Other: # Voids 2 Date of Last Bowel Movement 05/25/18 # Bowel Movements 2 Narrative: GENERAL: thin 37 year old male patient, in no acute distress SKIN: Warm and dry.multiple nodules noted bilateral buttocks, induration left buttock, bilateral groin, proximal thighs,erythema to buttocks bilaterally and thighs,areas of purulent drainage right axilla, bilateral buttocks and bilateral groin. HEAD: Normocephalic. EYES: No scleral icterus. No injection or drainage. CARDIOVASCULAR: Regular rate and rhythm RESPIRATORY: Breath sounds equal bilaterally. No accessory muscle use. GASTROINTESTINAL: Abdomen soft, non-tender, nondistended. Results - Labs CBC & Chem 7: 05/26/18 10:28 05/25/18 08:45 Laboratory Results - last 24 hr 05/24/18 05/25/18 13:15 08:45 Sodium 134 L Potassium 4.1 Chloride 101 Carbon Dioxide 28.7 Anion Gap 4 L BUN 7 Creatinine 0.84 Estimated GFR Greater than 89 Random Glucose 91 Calcium 8.1 L Total Bilirubin 0.2 AST 9 L ALT 9 L Alkaline Phosphatase 56 Total Protein 7.4 Albumin 2.0 L Vancomycin Trough 5.6 Hep Bs Antigen Nonreactive Microbiology 05/24/18 12:00 Wound - Buttock Gram Stain - Final 05/24/18 12:00 Wound - Buttock Wound Culture - Preliminary gram negative rods 05/23/18 18:20 Abscess - Buttock Gram Stain - Final 05/23/18 18:20 Abscess - Buttock Wound Culture - Final Escherichia coli Klebsiella pneumoniae 05/24/18 12:00 Wound - Axilla Gram Stain - Final 05/24/18 12:00 Wound - Axilla Wound Culture - Preliminary 05/24/18 12:00 Wound - Axilla Gram Stain - Final 05/24/18 12:00 Wound - Axilla Wound Culture - Preliminary No growth in 24 hours 05/24/18 12:00 Wound - Axilla Gram Stain - Final 05/24/18 12:00 Wound - Axilla Wound Culture - Preliminary 05/24/18 12:00 Wound - Axilla Gram Stain - Final 05/24/18 12:00 Wound - Axilla Wound Culture - Preliminary 05/24/18 12:00 Wound - Thigh Gram Stain - Final 05/24/18 12:00 Wound - Thigh Wound Culture - Preliminary No growth in 24 hours 05/24/18 12:00 Wound - Thigh Gram Stain - Final 05/24/18 12:00 Wound - Thigh Wound Culture - Preliminary gram negative rods 05/24/18 12:00 Wound - Thigh Gram Stain - Final 05/24/18 12:00 Wound - Thigh Wound Culture - Preliminary gram negative rods 05/24/18 12:00 Wound - Buttock Gram Stain - Final 05/24/18 12:00 Wound - Buttock Wound Culture - Preliminary 05/23/18 18:25 Blood - Peripheral Aerobic Blood Culture - Preliminary No growth in 2 days 05/23/18 18:25 Blood - Peripheral Anaerobic Blood Culture - Preliminary No growth in 2 days 05/23/18 18:20 Blood - Peripheral Aerobic Blood Culture - Preliminary No growth in 2 days 05/23/18 18:20 Blood - Peripheral Anaerobic Blood Culture - Preliminary No growth in 2 days Assessment and Plan - Assessment (1) Hidradenitis suppurativa Code(s): L73.2 - Hidradenitis suppurativa Status: Acute Plan: Hidradenitis suppurativa and Cellulitis of Right axilla, bilateral groin and bilateral buttocks per patient these areas have been intermittently draining over since 2013 Patient has previously had excision of the right axilla patient has follows with outpatient dermatology Dr. Joshua and SEFERINO Dhaliwal and has previously been on Zyvox, ciprofloxacin, rifampin and clindamycin Consult roe GENTILE input started on Cefepime and Vanco (with pharmacy consult) Consult plastic surgery, 05/24 Dr. Mane discussed the case with Dr. Royal who agrees to see the patient today multiple wound cultures taken, follow cultures buttock and thigh wound growing gram negative rods Buttock abscess E coli and Klebsiella pneumoniae blood cultures pending - no growth x 2 days [place] and Morphine as needed for pain Check RPR pending, hepatitis panel nonreactive, HIV pending, chlamydia pending Depression Continue home Lexapro DVT prophylaxis with SCDs (2) Cellulitis of multiple sites of buttock Code(s): L03.317 - Cellulitis of buttock Status: Acute - Attending Attestation Patient examined. Assessment and plan formulated with Felicitas GUARDADO I agree with the above.
[2018-05-25] MEDS: Vancomycin Inj 1,000 MG in Sodium Chlor 0.9% Inj 250 ML IV.SIG SCH (20:41)
[2018-05-26] MEDS: Morphine Inj 4 MG/ML Vial IV.PUSH PRN ×4 (00:44→21:29)
[2018-05-26] MEDS: Enoxaparin Inj 30 MG/0.3 ML Syringe SQ SCH (09:03)
[2018-05-26] MEDS: Senna/Docusate Sodium 8.6/50 MG Tablet PO SCH ×2 (09:13→20:09)
[2018-05-26] MEDS: Vancomycin Inj 1,000 MG in Sodium Chlor 0.9% Inj 250 ML IV.SIG SCH ×2 (09:13→20:07)
[2018-05-26] MEDS: Escitalopram 10 MG Tablet PO SCH (09:14)
[2018-05-26 10:38] LABS: Baso % (Auto) 0.2 % (0.0-2.0); Eos # (Auto) 0.3 th/mm3 (0.0-0.4); Eos % (Auto) 2.4 % (0.0-4.0); Hematocrit 36.7 % (39.0-51.0); Hemoglobin 11.7 gm/dL (13.0-17.0); Lymph # (Auto) 1.6 th/mm3 (1.0-4.8); Lymph % (Auto) 11.9 % (9.0-44.0); Mean Corpuscular HGB Conc 31.8 % (32.0-36.0); Mean Corpuscular Volume 78.7 fL (80.0-100.0); Mono # (Auto) 0.6 th/mm3 (0.0-0.9); Mono % (Auto) 4.1 % (0.0-8.0); Neut # (Auto) 11.2 th/mm3 (1.8-7.7); Neut % (Auto) 81.4 % (16.0-70.0); Platelet Count 406 th/mm3 (150-450); Red Blood Count 4.66 mil/mm3 (4.50-5.90); Red Cell Distribution Width 15.1 % (11.6-17.2); White Blood Count 13.7 th/mm3 (4.0-11.0)
--- NOTE | 2018-05-26 15:19 | P.PNIM ---
Subjective Interval history: Pt has NO new complaints. Physical Exam Vital signs: 05/26/18 03:57 05/26/18 08:00 05/26/18 12:00 Temperature 98.2 F 99.6 F 99.6 F Pulse Rate 89 81 83 Respiratory Rate 16 22 23 Blood Pressure 92/59 L 99/52 L 100/54 L Pulse Oximetry 99 98 98 Narrative: GENERAL: thin 37 year old male patient, in no acute distress SKIN: Warm and dry.multiple nodules noted bilateral buttocks, induration left buttock, bilateral groin, proximal thighs,erythema to buttocks bilaterally and thighs,areas of purulent drainage right axilla, bilateral buttocks and bilateral groin. HEAD: Normocephalic. EYES: No scleral icterus. No injection or drainage. CARDIOVASCULAR: Regular rate and rhythm RESPIRATORY: Breath sounds equal bilaterally. No accessory muscle use. GASTROINTESTINAL: Abdomen soft, non-tender, nondistended. Results - Labs CBC & Chem 7: 05/27/18 06:07 05/31/18 06:00 Laboratory Results - last 24 hr 05/26/18 10:28 WBC 13.7 H RBC 4.66 Hgb 11.7 L Hct 36.7 L MCV 78.7 L MCH 25.0 L MCHC 31.8 L RDW 15.1 Plt Count 406 MPV 7.0 Neut % (Auto) 81.4 H Lymph % (Auto) 11.9 [place] % (Auto) 4.1 Eos % (Auto) 2.4 Baso % (Auto) 0.2 Neut # (Auto) 11.2 H Lymph # (Auto) 1.6 [place] # (Auto) 0.6 Eos # (Auto) 0.3 Baso # (Auto) 0.0 WBC Differential . Differential Comment Auto diff final Microbiology 05/24/18 12:00 Wound - Axilla Gram Stain - Final 05/24/18 12:00 Wound - Axilla Wound Culture - Final Mixed Anaerobes 05/24/18 12:00 Wound - Axilla Gram Stain - Final 05/24/18 12:00 Wound - Axilla Wound Culture - Final Mixed Anaerobes 05/24/18 12:00 Wound - Axilla Gram Stain - Final 05/24/18 12:00 Wound - Axilla Wound Culture - Final anaerobic gram negative rods 05/24/18 12:00 Wound - Axilla Gram Stain - Final 05/24/18 12:00 Wound - Axilla Wound Culture - Final anaerobic gram negative rods 05/24/18 12:00 Wound - Thigh Gram Stain - Final 05/24/18 12:00 Wound - Thigh Wound Culture - Final Mixed Anaerobes 05/24/18 12:00 Wound - Thigh Gram Stain - Final 05/24/18 12:00 Wound - Thigh Wound Culture - Final Escherichia coli Mixed Anaerobes 05/24/18 12:00 Wound - Thigh Gram Stain - Final 05/24/18 12:00 Wound - Thigh Wound Culture - Final Escherichia coli Mixed Anaerobes 05/23/18 18:25 Blood - Peripheral Aerobic Blood Culture - Preliminary No growth in 3 days 05/23/18 18:25 Blood - Peripheral Anaerobic Blood Culture - Preliminary No growth in 3 days 05/23/18 18:20 Blood - Peripheral Aerobic Blood Culture - Preliminary No growth in 3 days 05/23/18 18:20 Blood - Peripheral Anaerobic Blood Culture - Preliminary No growth in 3 days 05/24/18 12:00 Wound - Buttock Gram Stain - Final 05/24/18 12:00 Wound - Buttock Wound Culture - Preliminary Escherichia coli Group D Enterococcus Denisse albicans 05/24/18 12:00 Wound - Buttock Gram Stain - Final 05/24/18 12:00 Wound - Buttock Wound Culture - Preliminary Group D Enterococcus 05/23/18 18:20 Abscess - Buttock Gram Stain - Final 05/23/18 18:20 Abscess - Buttock Wound Culture - Final Escherichia coli Klebsiella pneumoniae Assessment and Plan - Assessment (1) Hidradenitis suppurativa Code(s): L73.2 - Hidradenitis suppurativa Status: Acute Plan: Hidradenitis suppurativa and Cellulitis of Right axilla, bilateral groin and bilateral buttocks per patient these areas have been intermittently draining over since 2013 Patient has previously had excision of the right axilla patient has follows with outpatient dermatology Dr. Joshua and SEFERINO Dhaliwal and has previously been on Zyvox, ciprofloxacin, rifampin and clindamycin - comgmt with ID [facility] Plastics - Case d/w Dr. Royal (05/24). Pt planned for surgical excision of regions affected by hidradenitis, likely 05/27 or 05/28 - Case d/w Dr. Vaca (05/25) - Cefepime (05/24 - present) - Vancomycin (05/23 - present) - Flagyl (05/26 - present) - Diflucan (05/26 - presnet) - thigh wound cx --> mixed anaerobe, E. Coli - buttock wound cx --> E. Coli, Group D Strep, Denisse - buttock wound cx --> E. Coli Klebsiella - blood cultures pending --> NGTD - norco/morphine, dosing decreased d/t hypotension - RPR --> pending - hepatitis panel --> negative - HIV --> pending - chlamydia --> ? Depression Continue home Lexapro DVT prophylaxis with SCDs (2) Cellulitis of multiple sites of buttock Code(s): L03.317 - Cellulitis of buttock Status: Acute
[2018-05-26] MEDS: metroNIDAZOLE 500 MG Tablet PO SCH ×2 (15:34→21:35)
[2018-05-26] MEDS: Fluconazole 100 MG Tablet PO SCH (17:08)
[2018-05-27] MEDS: metroNIDAZOLE 500 MG Tablet PO SCH ×2 (06:50→13:16)
[2018-05-27] MEDS: Morphine Inj 4 MG/ML Vial IV.PUSH PRN ×2 (06:51→19:44)
[2018-05-27 07:26] LABS: Baso # (Auto) 0.1 th/mm3 (0.0-0.2); Baso % (Auto) 0.6 % (0.0-2.0); Eos # (Auto) 0.3 th/mm3 (0.0-0.4); Eos % (Auto) 2.5 % (0.0-4.0); Hematocrit 34.3 % (39.0-51.0); Hemoglobin 11.1 gm/dL (13.0-17.0); Lymph # (Auto) 2.3 th/mm3 (1.0-4.8); Lymph % (Auto) 16.3 % (9.0-44.0); Mean Corpuscular HGB Conc 32.3 % (32.0-36.0); Mean Corpuscular Hemoglobin 25.3 pg (27.0-34.0); Mean Corpuscular Volume 78.3 fL (80.0-100.0); Mean Platelet Volume 7.4 fL (7.0-11.0); Neut # (Auto) 10.2 th/mm3 (1.8-7.7); Neut % (Auto) 73.6 % (16.0-70.0); Platelet Count 415 th/mm3 (150-450); Red Blood Count 4.38 mil/mm3 (4.50-5.90); Red Cell Distribution Width 15.3 % (11.6-17.2); White Blood Count 13.8 th/mm3 (4.0-11.0)
[2018-05-27] MEDS ORDERED: Pharmacy Ordered Lab Info OTHER ONE (08:45)
[2018-05-27] MEDS: Escitalopram 10 MG Tablet PO SCH (09:13)
[2018-05-27] MEDS: Fluconazole 100 MG Tablet PO SCH (09:13)
[2018-05-27] MEDS: Senna/Docusate Sodium 8.6/50 MG Tablet PO SCH (09:14)
[2018-05-27] MEDS: Enoxaparin Inj 30 MG/0.3 ML Syringe SQ SCH (09:14)
--- NOTE | 2018-05-27 09:24 | P.PNIM ---
Subjective Interval history: no new events overnight. Physical Exam Vital signs: Vital Signs 05/26/18 12:00 05/26/18 16:00 05/26/18 20:00 Temperature 99.6 F 98.6 F 98 F Pulse Rate 83 85 86 Respiratory Rate 23 23 15 Blood Pressure 100/54 L 111/55 L 95/52 L Pulse Oximetry 98 98 95 05/27/18 00:00 05/27/18 04:00 05/27/18 04:21 Temperature 99.6 F 100.5 F H 97.6 F Pulse Rate 84 95 H Respiratory Rate 17 18 Blood Pressure 92/55 L 90/58 L Pulse Oximetry 98 97 Intake & Output 05/26/18 05/27/18 05/27/18 18:59 06:59 18:59 Intake Total 1410 / 1410 625 / 625 Balance 1410 / 1410 625 / 625 Weight 56.4 kg Intake: IV 450 / 450 385 / 385 Maxipime Inj 2,000 MG In NS Inj 200 / 200 110 / 110 100 ML @ 200 mls/hr IV.SIG Q8H SUE Rx#:[id number] Vancomycin Inj 1,000 MG In NS 250 / 250 275 / 275 Inj 250 ML @ 250 mls/hr IV.SIG Q12H SUE Rx#:[id number] Oral 960 / 960 240 / 240 Other: # Voids 4 3 Date of Last Bowel Movement 05/26/18 heart reg lung cta abd s/nt ext inner thigh/perineum/axillary hydradenitis some oozing of white drainage noted Results - Labs CBC & Chem 7: 05/27/18 06:07 05/25/18 08:45 Laboratory Results - last 24 hr 05/24/18 05/26/18 05/26/18 13:15 10:28 17:32 WBC 13.7 H RBC 4.66 Hgb 11.7 L Hct 36.7 L MCV 78.7 L MCH 25.0 L MCHC 31.8 L RDW 15.1 Plt Count 406 MPV 7.0 Neut % (Auto) 81.4 H Lymph % (Auto) 11.9 [place] % (Auto) 4.1 Eos % (Auto) 2.4 Baso % (Auto) 0.2 Neut # (Auto) 11.2 H Lymph # (Auto) 1.6 [place] # (Auto) 0.6 Eos # (Auto) 0.3 Baso # (Auto) 0.0 WBC Differential . Differential Comment Auto diff final RPR Cancelled HIV 1&2 Ab/P24 Ag 4thGn Nonreactive 05/27/18 06:07 WBC 13.8 H RBC 4.38 L Hgb 11.1 L Hct 34.3 L MCV 78.3 L MCH 25.3 L MCHC 32.3 RDW 15.3 Plt Count 415 MPV 7.4 Neut % (Auto) 73.6 H Lymph % (Auto) 16.3 [place] % (Auto) 7.0 Eos % (Auto) 2.5 Baso % (Auto) 0.6 Neut # (Auto) 10.2 H Lymph # (Auto) 2.3 [place] # (Auto) 1.0 H Eos # (Auto) 0.3 Baso # (Auto) 0.1 WBC Differential . Differential Comment Auto diff final RPR HIV 1&2 Ab/P24 Ag 4thGn Microbiology 05/24/18 12:00 Wound - Axilla Gram Stain - Final 05/24/18 12:00 Wound - Axilla Wound Culture - Final Mixed Anaerobes 05/24/18 12:00 Wound - Axilla Gram Stain - Final 05/24/18 12:00 Wound - Axilla Wound Culture - Final Mixed Anaerobes 05/24/18 12:00 Wound - Axilla Gram Stain - Final 05/24/18 12:00 Wound - Axilla Wound Culture - Final anaerobic gram negative rods 05/24/18 12:00 Wound - Axilla Gram Stain - Final 05/24/18 12:00 Wound - Axilla Wound Culture - Final anaerobic gram negative rods 05/24/18 12:00 Wound - Thigh Gram Stain - Final 05/24/18 12:00 Wound - Thigh Wound Culture - Final Mixed Anaerobes 05/24/18 12:00 Wound - Thigh Gram Stain - Final 05/24/18 12:00 Wound - Thigh Wound Culture - Final Escherichia coli Mixed Anaerobes 05/24/18 12:00 Wound - Thigh Gram Stain - Final 05/24/18 12:00 Wound - Thigh Wound Culture - Final Escherichia coli Mixed Anaerobes 05/23/18 18:25 Blood - Peripheral Aerobic Blood Culture - Preliminary No growth in 3 days 05/23/18 18:25 Blood - Peripheral Anaerobic Blood Culture - Preliminary No growth in 3 days 05/23/18 18:20 Blood - Peripheral Aerobic Blood Culture - Preliminary No growth in 3 days 05/23/18 18:20 Blood - Peripheral Anaerobic Blood Culture - Preliminary No growth in 3 days 05/24/18 12:00 Wound - Buttock Gram Stain - Final 05/24/18 12:00 Wound - Buttock Wound Culture - Preliminary Escherichia coli Group D Enterococcus Denisse albicans 05/24/18 12:00 Wound - Buttock Gram Stain - Final 05/24/18 12:00 Wound - Buttock Wound Culture - Preliminary Group D Enterococcus Assessment and Plan - Assessment (1) Hidradenitis suppurativa Code(s): L73.2 - Hidradenitis suppurativa Status: Acute Plan: Hidradenitis suppurativa and Cellulitis of Right axilla, bilateral groin and bilateral buttocks per patient these areas have been intermittently draining over since 2013 Patient has previously had excision of the right axilla patient has follows with outpatient dermatology Dr. Joshua and ID Paz Dhaliwal and has previously been on Zyvox, ciprofloxacin, rifampin and clindamycin - comgmt with ID [facility] Plastics - Case d/w Dr. Royal (05/24). Pt planned for surgical excision of regions affected by hidradenitis, likely 05/27 or 05/28 - Case d/w Dr. Vaca (05/25) - Cefepime (05/24 - present) - Vancomycin (05/23 - present) - Flagyl (05/26 - present) - Diflucan (05/26 - presnet) - thigh wound cx --> mixed anaerobe, E. Coli - buttock wound cx --> E. Coli, Group D Strep, Denisse - buttock wound cx --> E. Coli Klebsiella - blood cultures pending --> NGTD - norco/morphine, dosing decreased d/t hypotension - RPR --> pending - hepatitis panel --> negative - HIV --> pending cont current rx and await surgical intervention discussed post hospital snf placement for wound care with CM Depression Continue home Lexapro DVT prophylaxis with SCDs (2) Cellulitis of multiple sites of buttock Code(s): L03.317 - Cellulitis of buttock Status: Acute
[2018-05-27 10:00] LABS: Anion Gap 6 meq/L (5-15); Blood Urea Nitrogen 10 mg/dL (7-18); Calcium 8.5 mg/dL (8.5-10.1); Carbon Dioxide 28.9 meq/L (21.0-32.0); Chloride 102 meq/L (98-107); Glomerular Filtration Rate Greater Than 89 mL/min (>89); Glucose,Random 93 mg/dL (74-106); Potassium 4.2 meq/L (3.5-5.1); Sodium 137 meq/L (136-145)
[2018-05-27] MEDS: Vancomycin Inj 1,000 MG in Sodium Chlor 0.9% Inj 250 ML IV.SIG SCH ×2 (10:02→16:11)
[2018-05-27 10:03] LABS: Vancomycin,Trough 8.3 mcg/mL (5.0-10.0)
--- NOTE | 2018-05-27 13:55 | ECG ---
Date Performed: 05/26/2018 Time Performed: 17:09:52 PTAGE: 37 years EKG: Sinus rhythm WITH SHORT LA INTERVAL WITH OCCASIONAL VENTRICULAR PREMATURE COMPLEXES BORDERLINE ECG NO PREVIOUS TRACING DOCTOR: Anthony Richmond Interpretating Date/Time 05/27/2018 13:54:28
[2018-05-27] MEDS ORDERED: Vancomycin Inj 1,000 MG in Sodium Chlor 0.9% Inj 250 ML IV.SIG SCH (15:00)
[2018-05-27] MEDS ORDERED: Metoprolol Tartrate 25 MG Tablet PO ONE (20:00)
[2018-05-27] MEDS ORDERED: Chlorhexidine Gluconate 2% 1 Pack (2 Cloths) TOPICAL ONE (20:00)
[2018-05-27] MEDS ORDERED: Sodium Chlor 0.9% Inj 500 ML IV.CONT ONE (20:00)
[2018-05-27] MEDS ORDERED: Neostigmine Inj 5 MG/5 ML Syringe IV.PUSH ONE (20:36)
[2018-05-27] MEDS ORDERED: Lidocaine PF 1% Inj 5 ML Syringe OTHER ONE (20:36)
[2018-05-27] MEDS ORDERED: Glycopyrrolate Inj 1 MG/5 ML Syringe IV.PUSH ONE (20:36)
[2018-05-27] MEDS ORDERED: Lidocaine 1%/Epinephrine 1:100,000 Inj 50 ML Vial ONE (20:43)
[2018-05-27] MEDS ORDERED: Bupivacaine/Epinephrine Inj 0.25% 50 ML Vial ONE (20:43)
[2018-05-27] MEDS ORDERED: fentaNYL Citrate Inj 100 MCG/2 ML Ampul ONE ×2 (21:46→22:46)
[2018-05-27] MEDS ORDERED: Morphine Inj 30 MG/30 ML PCA.VIAL PCA PRN ×2 (22:45→22:54)
[2018-05-27] MEDS ORDERED: Sugammadex Inj 200 MG/2 ML Vial IV.PUSH ONE (22:51)
[2018-05-27] MEDS ORDERED: Naloxone Inj 0.4 MG/ML Vial IV.PUSH PRN ×2 (22:54→23:25)
[2018-05-27] MEDS ORDERED: *morphine SULFATE 4 MG/ML PERIprocedure ONLY ONE ×2 (23:11→23:24)
[2018-05-27] MEDS: Morphine Inj 30 MG/30 ML PCA.VIAL PCA PRN (23:25)
[2018-05-28] MEDS: Vancomycin Inj 1,000 MG in Sodium Chlor 0.9% Inj 250 ML IV.SIG SCH ×3 (00:42→16:21)
[2018-05-28] MEDS: metroNIDAZOLE 500 MG Tablet PO SCH ×4 (00:45→21:40)
[2018-05-28] MEDS: Senna/Docusate Sodium 8.6/50 MG Tablet PO SCH ×3 (00:47→20:36)
[2018-05-28] MEDS: Enoxaparin Inj 30 MG/0.3 ML Syringe SQ SCH (08:26)
[2018-05-28] MEDS: Fluconazole 100 MG Tablet PO SCH (08:26)
[2018-05-28] MEDS: Escitalopram 10 MG Tablet PO SCH (08:26)
[2018-05-28] MEDS ORDERED: Pharmacy Ordered Lab Info OTHER ONE (08:45)
--- NOTE | 2018-05-28 10:57 | P.PNIM ---
Subjective Interval history: comfortable. Physical Exam Vital signs: Vital Signs 05/27/18 12:00 05/27/18 16:00 05/27/18 19:42 Temperature 98.2 F 98.0 F 99.1 F Pulse Rate 71 72 61 Respiratory Rate 16 17 20 Blood Pressure 95/52 L 100/56 L 99/59 L Pulse Oximetry 96 98 100 05/27/18 22:58 05/27/18 23:00 05/27/18 23:13 Temperature 97.4 F L Pulse Rate 81 74 Respiratory Rate 16 17 16 Blood Pressure 116/57 L 116/58 L Pulse Oximetry 100 100 05/27/18 23:15 05/27/18 23:27 05/27/18 23:30 Temperature Pulse Rate 75 70 Respiratory Rate 22 18 15 Blood Pressure 116/58 L 128/74 Pulse Oximetry 100 100 05/27/18 23:45 05/27/18 23:55 05/28/18 00:00 Temperature Pulse Rate 54 L 53 L Respiratory Rate 17 16 16 Blood Pressure 116/58 L 104/56 L Pulse Oximetry 100 98 05/28/18 00:20 05/28/18 02:10 05/28/18 04:00 Temperature 98.9 F 99.4 F 98.9 F Pulse Rate 55 L 73 66 Respiratory Rate 18 18 18 Blood Pressure 107/72 101/51 L 100/51 L Pulse Oximetry 98 97 98 05/28/18 08:00 Temperature 98.4 F Pulse Rate 60 Respiratory Rate 20 Blood Pressure 95/50 L Pulse Oximetry 99 Intake & Output 05/27/18 05/28/18 05/28/18 18:59 06:59 18:59 Intake Total 1180 / 1180 3070 / 3070 220 / 220 Output Total 1025 / 1025 Balance 1180 / 1180 2045 / 2045 220 / 220 Weight 60.9 kg Intake: IV 700 / 700 1350 / 1350 220 / 220 LR 1000 mL Inj 1,000 ML @ 30 120 / 120 mls/hr IV.CONT .Q24H ONE Rx#: [id number] Maxipime Inj 2,000 MG In NS Inj 200 / 200 100 / 100 100 / 100 100 ML @ 200 mls/hr IV.SIG Q8H SUE Rx#:[id number] LR 1000 mL Inj 1,000 ML @ 150 1000 / 1000 mls/hr IV.SIG .Q6H40M [facility] Rx#: [id number] Vancomycin Inj 1,000 MG In NS 500 / 500 250 / 250 Inj 250 ML @ 250 mls/hr IV.SIG Q8H [facility] Rx#:[id number] Oral 480 / 480 720 / 720 Anesthesia Amount 1000 / 1000 Output: Urine 875 / 875 Estimated Blood Loss 150 / 150 Other: # Voids 3 # Bowel Movements 0 heart reg lung cta abd s/nt ext no edema axillary and groin bandages noted Results - Labs CBC & Chem 7: 05/27/18 06:07 05/27/18 09:18 Laboratory Results - last 24 hr 05/24/18 05/28/18 13:15 08:55 Vancomycin Trough 15.2 H HIV RNA copies/mL Ultra Less than 20.0 HIV RNA logcopies/mL Ult Less than 1.30 Microbiology 05/23/18 18:25 Blood - Peripheral Aerobic Blood Culture - Preliminary No growth in 4 days 05/23/18 18:25 Blood - Peripheral Anaerobic Blood Culture - Preliminary No growth in 4 days 05/23/18 18:20 Blood - Peripheral Aerobic Blood Culture - Preliminary No growth in 4 days 05/23/18 18:20 Blood - Peripheral Anaerobic Blood Culture - Preliminary No growth in 4 days 05/24/18 12:00 Wound - Buttock Gram Stain - Final 05/24/18 12:00 Wound - Buttock Wound Culture - Final Escherichia coli Enterococcus faecalis Denisse albicans 05/24/18 12:00 Wound - Buttock Gram Stain - Final 05/24/18 12:00 Wound - Buttock Wound Culture - Final Enterococcus faecalis Assessment and Plan - Assessment (1) Hidradenitis suppurativa Code(s): L73.2 - Hidradenitis suppurativa Status: Acute Plan: Hidradenitis suppurativa and Cellulitis of Right axilla, bilateral groin and bilateral buttocks per patient these areas have been intermittently draining over since 2013 Patient has previously had excision of the right axilla patient has follows with outpatient dermatology Dr. Joshua and ID Paz Dhaliwal and has previously been on Zyvox, ciprofloxacin, rifampin and clindamycin - comgmt with ID [facility] Plastics - Case d/w Dr. Royal (05/24). Pt planned for surgical excision of regions affected by hidradenitis, likely 05/27 or 05/28 - Case d/w Dr. Vaca (05/25) - Cefepime (05/24 - present) - Vancomycin (05/23 - present) - Flagyl (05/26 - present) - Diflucan (05/26 - presnet) - thigh wound cx --> mixed anaerobe, E. Coli - buttock wound cx --> E. Coli, Group D Strep, Denisse - buttock wound cx --> E. Coli Klebsiella - blood cultures pending --> NGTD - norco/morphine, dosing decreased d/t hypotension - RPR --> neg - hepatitis panel --> negative - HIV --> pending 05/27. 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
[2018-05-28] MEDS: Morphine Inj 30 MG/30 ML PCA.VIAL PCA PRN (14:15)
--- NOTE | 2018-05-28 17:20 | P.PNPLA ---
Subjective Remarks: Patient doing well post op - no acute bleeding, has been able to get off the bed and walk in the room. Pain moderate, OK with CABIN CREW. Dressings changed - except Xeroform - adherent to the wounds, OK to let them separate with time and further dressing changes. Patient should be kept in house for another 48 hours - for pain control and to get the IV antibiotics, as well as watch for any surgical site bleeding. After that he will need nursing care to change the dressings at home once a day at least - and be seen in the wound care clinic at [facility] on a weekly basis - overall the wound care may last several months. Discussed possible skin grafting to be considered in future - he does have a higher risk of Keloid at the donor site because of the pigmented skin type. He is currently thinking only of wound care and will decide about other options in future. Cain Royal MD, FACS Objective Vital Signs: Vital Signs - 24 hr 05/27/18 19:42 05/27/18 22:58 05/27/18 23:00 Temperature 99.1 F 97.4 F L Pulse Rate 61 81 74 Respiratory Rate 20 16 17 Blood Pressure 99/59 L 116/57 L 116/58 L Pulse Oximetry 100 100 100 05/27/18 23:13 05/27/18 23:15 05/27/18 23:27 Temperature Pulse Rate 75 Respiratory Rate 16 22 18 Blood Pressure 116/58 L Pulse Oximetry 100 05/27/18 23:30 05/27/18 23:45 05/27/18 23:55 Temperature Pulse Rate 70 54 L Respiratory Rate 15 17 16 Blood Pressure 128/74 116/58 L Pulse Oximetry 100 100 05/28/18 00:00 05/28/18 00:20 05/28/18 02:10 Temperature 98.9 F 99.4 F Pulse Rate 53 L 55 L 73 Respiratory Rate 16 18 18 Blood Pressure 104/56 L 107/72 101/51 L Pulse Oximetry 98 98 97 05/28/18 04:00 05/28/18 08:00 05/28/18 12:00 Temperature 98.9 F 98.4 F 98.8 F Pulse Rate 66 60 66 Respiratory Rate 18 20 20 Blood Pressure 100/51 L 95/50 L 95/54 L Pulse Oximetry 98 99 98 05/28/18 16:19 Temperature Pulse Rate Respiratory Rate 18 Blood Pressure Pulse Oximetry Intake & Output 05/26/18 05/27/18 05/28/18 05/29/18 06:59 06:59 06:59 06:59 Intake Total 2196.5 / 2196.5 2034 4250 / 4250 470 / 470 Output Total 1025 / 1025 Balance 2196.5 / 2196.5 2034 3225 / 3225 470 / 470 Weight 56 kg 56.4 kg 60.9 kg Laboratory Results: Laboratory Results - last 24 hr 05/24/18 05/28/18 13:15 08:55 Vancomycin Trough 15.2 H HIV RNA copies/mL Ultra Less than 20.0 HIV RNA logcopies/mL Ult Less than 1.30 Microbiology 05/23/18 18:25 Aerobic Blood Culture - Final Blood - Peripheral No growth in 5 days Anaerobic Blood Culture - Final No growth in 5 days 05/23/18 18:20 Aerobic Blood Culture - Final Blood - Peripheral No growth in 5 days Anaerobic Blood Culture - Final No growth in 5 days Result Diagrams: 05/27/18 06:07 05/27/18 09:18
[2018-05-29] MEDS: Vancomycin Inj 1,000 MG in Sodium Chlor 0.9% Inj 250 ML IV.SIG SCH ×3 (01:14→18:29)
[2018-05-29] MEDS: metroNIDAZOLE 500 MG Tablet PO SCH ×3 (06:06→21:19)
[2018-05-29 07:36] LABS: Glomerular Filtration Rate Greater Than 89 mL/min (>89)
[2018-05-29] MEDS ORDERED: Pharmacy Ordered Lab Info OTHER ONE (08:45)
[2018-05-29] MEDS: Enoxaparin Inj 30 MG/0.3 ML Syringe SQ SCH (10:14)
[2018-05-29] MEDS: Fluconazole 100 MG Tablet PO SCH (10:14)
[2018-05-29] MEDS: Escitalopram 10 MG Tablet PO SCH (10:14)
[2018-05-29] MEDS: Senna/Docusate Sodium 8.6/50 MG Tablet PO SCH ×2 (10:14→21:19)
--- NOTE | 2018-05-29 10:16 | P.PNIM ---
Subjective Interval history: no new complaints Physical Exam Vital signs: Vital Signs 05/28/18 12:00 05/28/18 16:00 05/28/18 16:19 Temperature 98.8 F 99.1 F Pulse Rate 66 70 Respiratory Rate 20 20 18 Blood Pressure 95/54 L 112/56 L Pulse Oximetry 98 97 05/28/18 20:00 05/28/18 23:52 05/29/18 04:00 Temperature 99.2 F 98.2 F 98.1 F Pulse Rate 78 75 76 Respiratory Rate 18 18 18 Blood Pressure 106/59 L 104/61 104/59 L Pulse Oximetry 98 94 L 92 L 05/29/18 08:00 Temperature 99.6 F Pulse Rate 68 Respiratory Rate 18 Blood Pressure 91/55 L Pulse Oximetry 97 Intake & Output 05/28/18 05/29/18 05/29/18 18:59 06:59 18:59 Intake Total 2580 / 2580 2350 / 2350 Output Total 1625 / 1625 2300 / 2300 Balance 955 / 955 50 / 50 Weight 61.2 kg Intake: IV 1620 / 1620 2350 / 2350 LR 1000 mL Inj 1,000 ML @ 30 120 / 120 mls/hr IV.CONT .Q24H [facility] Rx#: [id number] Maxipime Inj 2,000 MG In NS Inj 200 / 200 100 / 100 100 ML @ 200 mls/hr IV.SIG Q8H [facility] Rx#:[id number] LR 1000 mL Inj 1,000 ML @ 150 800 / 800 2000 / 2000 mls/hr IV.SIG .Q6H40M [facility] Rx#: [id number] Vancomycin Inj 1,000 MG In NS 500 / 500 250 / 250 Inj 250 ML @ 250 mls/hr IV.SIG Q8H [facility] Rx#:[id number] Oral 960 / 960 Output: Urine 1625 / 1625 2300 / 2300 Other: # Bowel Movements 0 heart reg lung cta abd s/nt ext no edema bandages axillary/groin/buttock. Results - Labs CBC & Chem 7: 05/27/18 06:07 05/29/18 06:08 Laboratory Results - last 24 hr 05/29/18 06:08 Creatinine 0.57 L Estimated GFR Greater than 89 Microbiology 05/23/18 18:25 Blood - Peripheral Aerobic Blood Culture - Final No growth in 5 days 05/23/18 18:25 Blood - Peripheral Anaerobic Blood Culture - Final No growth in 5 days 05/23/18 18:20 Blood - Peripheral Aerobic Blood Culture - Final No growth in 5 days 05/23/18 18:20 Blood - Peripheral Anaerobic Blood Culture - Final No growth in 5 days Assessment and Plan - Assessment (1) Hidradenitis suppurativa Code(s): L73.2 - Hidradenitis suppurativa Status: Acute Plan: Hidradenitis suppurativa and Cellulitis of Right axilla, bilateral groin and bilateral buttocks per patient these areas have been intermittently draining over since 2013 Patient has previously had excision of the right axilla patient has follows with outpatient dermatology Dr. Joshua and ID Paz Dhaliwal and has previously been on Zyvox, ciprofloxacin, rifampin and clindamycin - comgmt with ID & Plastics - Case d/w Dr. Royal (05/24). Pt planned for surgical excision of regions affected by hidradenitis, likely 05/27 or 05/28 - Case d/w Dr. Vaca (05/25) - Cefepime (05/24 - present) - Vancomycin (05/23 - present) - Flagyl (05/26 - present) - Diflucan (05/26 - [facility]) - thigh wound cx --> mixed anaerobe, E. Coli - buttock wound cx --> E. Coli, Group D Strep, Denisse - buttock wound cx --> E. Coli Klebsiella - blood cultures pending --> NGTD - norco/morphine, dosing decreased d/t hypotension - RPR --> neg - hepatitis panel --> negative - HIV --> pending 05/27. surgical resection of hydadenitis groin/scrotum/buttock/thigh/axillary pt on shove up pump wound care per plastics plan for dc to snf for wound care/med management when cleared by Plastics will need to discuss dc abx regimen with ID hopefully dc to snf on Sunday. Depression Continue home Lexapro DVT prophylaxis with SCDs (2) Cellulitis of multiple sites of buttock Code(s): L03.317 - Cellulitis of buttock Status: Acute
[2018-05-29] MEDS: Morphine Inj 30 MG/30 ML PCA.VIAL PCA PRN (11:43)
[2018-05-30] MEDS: Vancomycin Inj 1,000 MG in Sodium Chlor 0.9% Inj 250 ML IV.SIG SCH ×3 (00:20→16:35)
[2018-05-30] MEDS: metroNIDAZOLE 500 MG Tablet PO SCH ×3 (06:06→22:26)
[2018-05-30] MEDS: Senna/Docusate Sodium 8.6/50 MG Tablet PO SCH ×2 (08:39→20:24)
[2018-05-30] MEDS: Enoxaparin Inj 30 MG/0.3 ML Syringe SQ SCH (08:45)
[2018-05-30] MEDS: Fluconazole 100 MG Tablet PO SCH (08:49)
[2018-05-30] MEDS: Escitalopram 10 MG Tablet PO SCH (08:49)
--- NOTE | 2018-05-30 10:25 | P.PNIM ---
Subjective Interval history: pt lying in bed. discouraged. wondering if he made right decision to undergo surgery. Physical Exam Vital signs: Vital Signs 05/29/18 12:00 05/29/18 12:52 05/29/18 16:00 Temperature 99.4 F 100.9 F H Pulse Rate 80 Respiratory Rate 18 18 18 Blood Pressure 99/52 L 112/56 L Pulse Oximetry 97 97 05/29/18 20:00 05/29/18 23:41 05/30/18 04:00 Temperature 99.9 F H 97.9 F 98.0 F Pulse Rate 90 66 81 Respiratory Rate 14 12 14 Blood Pressure 99/56 L 90/54 L 103/60 Pulse Oximetry 95 97 94 L 05/30/18 08:00 Temperature 98.3 F Pulse Rate 82 Respiratory Rate 23 Blood Pressure 102/53 L Pulse Oximetry 96 Intake & Output 05/29/18 05/30/18 05/30/18 18:59 06:59 18:59 Intake Total 4140 / 4140 1995 / 1995 900 / 900 Output Total 3000 / 3000 1275 / 1275 Balance 1140 / 1140 721 / 721 900 / 900 Weight 59.6 kg Intake: IV 2700 / 2700 1485 / 1485 900 / 900 Maxipime Inj 2,000 MG In NS Inj 200 / 200 110 / 110 100 ML @ 200 mls/hr IV.SIG Q8H [facility] Rx#:[id number] LR 1000 mL Inj 1,000 ML @ 150 2000 / 2000 1100 / 1100 900 / 900 mls/hr IV.SIG .Q6H40M [facility] Rx#: [id number] Vancomycin Inj 1,000 MG In NS 500 / 500 275 / 275 Inj 250 ML @ 250 mls/hr IV.SIG Q8H [facility] Rx#:[id number] Oral 1440 / 1440 480 / 480 Anesthesia Amount Output: Urine 3000 / 3000 1275 / 1275 Other: Date of Last Bowel Movement 05/29/18 # Bowel Movements 1 oriented no distress bandages over axilla/groin/buttock Results - Labs CBC & Chem 7: 05/27/18 06:07 05/29/18 06:08 Laboratory Results - last 24 hr 05/29/18 10:30 Vancomycin Trough 15.7 H Assessment and Plan - Assessment (1) Hidradenitis suppurativa Code(s): L73.2 - Hidradenitis suppurativa Status: Acute Plan: Hidradenitis suppurativa and Cellulitis of Right axilla, bilateral groin and bilateral buttocks per patient these areas have been intermittently draining over since 2013 Patient has previously had excision of the right axilla patient has follows with outpatient dermatology Dr. Joshua and ID Paz Dhaliwal and has previously been on Zyvox, ciprofloxacin, rifampin and clindamycin - comgmt with ID & Plastics - Case d/w Dr. Royal (05/24). Pt planned for surgical excision of regions affected by hidradenitis, likely 05/27 or 05/28 - Case d/w Dr. Vaca (05/25) - Cefepime (05/24 - present) - Vancomycin (05/23 - present) - Flagyl (05/26 - present) - Diflucan (05/26 - present) - thigh wound cx --> mixed anaerobe, E. Coli - buttock wound cx --> E. Coli, Group D Strep, Denisse - buttock wound cx --> E. Coli Klebsiella,enterococcus - blood cultures pending --> NGTD - norco/morphine, dosing decreased d/t hypotension - RPR --> neg - hepatitis panel --> negative - HIV --> neg 05/27. 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 wound care clinic. will need to discuss dc abx regimen with ID add on nutritional supplement Depression Continue home Lexapro DVT prophylaxis with SCDs (2) Cellulitis of multiple sites of buttock Code(s): L03.317 - Cellulitis of buttock Status: Acute
[2018-05-30] MEDS: Morphine Inj 30 MG/30 ML PCA.VIAL PCA PRN (10:48)
[2018-05-30] MEDS: Morphine Inj 4 MG/ML Vial IV.PUSH PRN (22:26)
[2018-05-31] MEDS: Vancomycin Inj 1,000 MG in Sodium Chlor 0.9% Inj 250 ML IV.SIG SCH ×2 (01:15→08:30)
[2018-05-31] MEDS: Morphine Inj 4 MG/ML Vial IV.PUSH PRN ×4 (02:43→20:22)
[2018-05-31] MEDS: metroNIDAZOLE 500 MG Tablet PO SCH ×3 (06:31→21:20)
[2018-05-31 07:29] LABS: Glomerular Filtration Rate Greater Than 89 mL/min (>89)
[2018-05-31] MEDS: Fluconazole 100 MG Tablet PO SCH (08:30)
[2018-05-31] MEDS: Enoxaparin Inj 30 MG/0.3 ML Syringe SQ SCH (08:30)
[2018-05-31] MEDS: Senna/Docusate Sodium 8.6/50 MG Tablet PO SCH ×2 (08:30→20:29)
[2018-05-31] MEDS: Escitalopram 10 MG Tablet PO SCH (08:30)
--- NOTE | 2018-05-31 09:31 | P.PNIM ---
Subjective Interval history: says oral pain meds working and is willing to make efforts to wean off iv morphine. Physical Exam Vital signs: Vital Signs 05/30/18 12:00 05/30/18 12:20 05/30/18 16:00 Temperature 98.5 F 98.2 F Pulse Rate 84 86 Respiratory Rate 23 18 23 Blood Pressure 97/52 L 102/54 L Pulse Oximetry 97 98 05/30/18 20:00 05/31/18 00:00 05/31/18 04:00 Temperature 98.9 F 99 F 98.4 F Pulse Rate 104 H 91 H 85 Respiratory Rate 19 17 15 Blood Pressure 101/50 L 94/52 L 112/56 L Pulse Oximetry 95 94 L 98 Intake & Output 05/30/18 05/31/18 05/31/18 18:59 06:59 18:59 Intake Total 3560 / 3560 3115 / 3115 Output Total 1800 / 1800 Balance 3560 / 3560 1315 / 1315 Weight 61.1 kg Intake: IV 2600 / 2600 2875 / 2875 Maxipime Inj 2,000 MG In NS Inj 200 / 200 210 / 210 100 ML @ 200 mls/hr IV.SIG Q8H [facility] Rx#:[id number] LR 1000 mL Inj 1,000 ML @ 150 1900 / 1900 2415 / 2415 mls/hr IV.SIG .Q6H40M [facility] Rx#: [id number] Vancomycin Inj 1,000 MG In NS 500 / 500 250 / 250 Inj 250 ML @ 250 mls/hr IV.SIG Q8H [facility] Rx#:[id number] Oral 960 / 960 240 / 240 Output: Urine 1800 / 1800 Other: # Voids 4 3 Date of Last Bowel Movement 05/29/18 05/29/18 heart reg lung cta abd s/nt ext no edema axillary/buttock/groin bandages. Results - Labs CBC & Chem 7: 05/27/18 06:07 05/31/18 06:00 Laboratory Results - last 24 hr 05/31/18 06:00 Creatinine 0.63 Estimated GFR Greater than 89 Assessment and Plan - Assessment (1) Hidradenitis suppurativa Code(s): L73.2 - Hidradenitis suppurativa Status: Acute Plan: Hidradenitis suppurativa and Cellulitis of Right axilla, bilateral groin and bilateral buttocks per patient these areas have been intermittently draining over since 2013 Patient has previously had excision of the right axilla patient has follows with outpatient dermatology Dr. Joshua and ID Paz Dhaliwal and has previously been on Zyvox, ciprofloxacin, rifampin and clindamycin - comgmt with ID & Plastics - Case d/w Dr. Royal (05/24). Pt planned for surgical excision of regions affected by hidradenitis, likely 05/27 or 05/28 - Case d/w Dr. Vaca (05/25) - Cefepime (05/24 - present) - Vancomycin (05/23 - present) - Flagyl (05/26 - present) - Diflucan (05/26 - present) - thigh wound cx --> mixed anaerobe, E. Coli - buttock wound cx --> E. Coli, Group D Strep, Denisse - buttock wound cx --> E. Coli Klebsiella,enterococcus - blood cultures pending --> NGTD - norco/morphine, dosing decreased d/t hypotension - RPR --> neg - hepatitis panel --> negative - HIV --> neg 05/27. 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 efforts to limit iv morphine and use po percocet. wound care per plastics plan for dc to snf for wound care/med management when cleared by Plastics with weekly visits to [facility] wound care clinic. will need to discuss dc abx regimen with ID added on nutritional supplement Depression Continue home Lexapro DVT prophylaxis with SCDs (2) Cellulitis of multiple sites of buttock Code(s): L03.317 - Cellulitis of buttock Status: Acute
[2018-05-31] MEDS: oxyCODONE/Acetaminophen 10/325 Tablet PO PRN ×3 (12:23→22:46)
--- NOTE | 2018-05-31 14:03 | P.PNID ---
Infectious Disease Brief Note Case dw and pictures reviewed with : post op pics indicate excellent source control with removal of all infected tissues. Continue IV antibiotics while in hospital Upon discharge ok to change to following regimen: 1. Diflucan 100 mg po daily for 10 days. 2. Doxy 100 mg po bid for 10 days. 3. flagyl 100 mg po tid for 10 days. Will sign off please call back if any change in clinical condition or questions. Vital Signs - 24 hr 05/30/18 16:00 05/30/18 20:00 05/31/18 00:00 Temperature 98.2 F 98.9 F 99 F Pulse Rate 86 104 H 91 H Respiratory Rate 23 19 17 Blood Pressure 102/54 L 101/50 L 94/52 L Pulse Oximetry 98 95 94 L 05/31/18 04:00 05/31/18 08:00 05/31/18 12:00 Temperature 98.4 F 98.5 F 98.6 F Pulse Rate 85 80 81 Respiratory Rate 15 23 23 Blood Pressure 112/56 L 95/52 L 93/55 L Pulse Oximetry 98 96 97 Laboratory Results - last 24 hr 05/31/18 06:00 Creatinine 0.63 Estimated GFR Greater than 89
[2018-06-01] MEDS: Morphine Inj 4 MG/ML Vial IV.PUSH PRN ×6 (01:14→22:59)
[2018-06-01] MEDS: oxyCODONE/Acetaminophen 10/325 Tablet PO PRN ×5 (02:50→21:15)
[2018-06-01] MEDS: metroNIDAZOLE 500 MG Tablet PO SCH ×3 (07:08→21:15)
[2018-06-01] MEDS: Escitalopram 10 MG Tablet PO SCH (08:45)
[2018-06-01] MEDS: Fluconazole 100 MG Tablet PO SCH (08:45)
[2018-06-01] MEDS: Senna/Docusate Sodium 8.6/50 MG Tablet PO SCH ×2 (08:45→21:15)
[2018-06-01] MEDS: Enoxaparin Inj 30 MG/0.3 ML Syringe SQ SCH (08:45)
[2018-06-01] MEDS ORDERED: Pharmacy Ordered Lab Info OTHER ONE (08:45)
--- NOTE | 2018-06-01 10:14 | P.PNIM ---
Subjective Interval history: pt doing ok. no new complaints Physical Exam Vital signs: Vital Signs 05/31/18 12:00 05/31/18 16:00 05/31/18 20:00 Temperature 98.6 F 98.0 F 98.1 F Pulse Rate 81 86 91 H Respiratory Rate 23 23 18 Blood Pressure 93/55 L 128/58 L 107/63 Pulse Oximetry 97 97 94 L 06/01/18 00:00 06/01/18 04:00 06/01/18 05:00 Temperature 98 F 98 F Pulse Rate 83 75 Respiratory Rate 18 18 17 Blood Pressure 133/58 L 104/50 L Pulse Oximetry 95 92 L Intake & Output 05/31/18 06/01/18 06/01/18 18:59 06:59 18:59 Intake Total 1950 / 1950 100 / 100 Output Total 1000 / 1000 Balance 950 / 950 100 / 100 Intake: IV 1470 / 1470 100 / 100 Maxipime Inj 2,000 MG In NS Inj 220 / 220 100 / 100 100 ML @ 200 mls/hr IV.SIG Q8H [facility] Rx#:[id number] LR 1000 mL Inj 1,000 ML @ 150 1000 / 1000 mls/hr IV.SIG .Q6H40M [facility] Rx#: [id number] Vancomycin Inj 1,000 MG In NS 250 / 250 Inj 250 ML @ 250 mls/hr IV.SIG Q8H [facility] Rx#:[id number] Oral 480 / 480 Output: Urine 1000 / 1000 heart rg lung cta abd s/nt ext no edema axillary/inguinal/buttock bandages Results - Labs CBC & Chem 7: 05/27/18 06:07 05/31/18 06:00 Laboratory Results - last 24 hr 06/01/18 08:45 Vancomycin Trough 3.4 L Assessment and Plan - Assessment (1) Hidradenitis suppurativa Code(s): L73.2 - Hidradenitis suppurativa Status: Acute Plan: Hidradenitis suppurativa and Cellulitis of Right axilla, bilateral groin and bilateral buttocks per patient these areas have been intermittently draining over since 2013 Patient has previously had excision of the right axilla patient has follows with outpatient dermatology Dr. Joshua and ID Paz Dhaliwal and has previously been on Zyvox, ciprofloxacin, rifampin and clindamycin - comgmt with ID & Plastics - Case d/w Dr. Royal (05/24). Pt planned for surgical excision of regions affected by hidradenitis, likely 05/27 or 05/28 - Case d/w Dr. Vaca (05/25) - Cefepime (05/24 - present) - Vancomycin (05/23 - present) - Flagyl (05/26 - present) - Diflucan (05/26 - present - thigh wound cx --> mixed anaerobe, E. Coli - buttock wound cx --> E. Coli, Group D Strep, Denisse - buttock wound cx --> E. Coli Klebsiella, enterococcus - blood cultures pending --> NGTD - norco/morphine, dosing decreased d/t hypotension - RPR --> neg - hepatitis panel --> negative - HIV --> neg 05/27. 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 efforts to limit iv morphine and use po percocet. wound care per plastics plan for dc to snf for wound care/med management when cleared by Plastics with weekly visits to [facility] wound care clinic. discussed dc abx with ID. will be po flagyl,diflucan,doxy x 10days added on nutritional supplement Depression Continue home Lexapro DVT prophylaxis with SCDs (2) Cellulitis of multiple sites of buttock Code(s): L03.317 - Cellulitis of buttock Status: Acute
--- NOTE | 2018-06-01 10:59 | P.PNPLA ---
Subjective Remarks: Patient stable, no new problems, pain manageable Wounds - dressing being changed when I saw patient today - Some xeroforms have been replaced. most of the original ones placed at surgery are still adhering to the woudnd Patient can now go in shower and either sit down or stand - use running water and baby shampoo or mild soap for all surgical areas - to help separate the xeroforms slowly and also to wash off any drainage - or stool contamination as needed, Redress with Xeroforms and gauze as needed, use mesh panties to hold the dressings, minimal tape OK to discharge from surgery stand point - he may go through the rehab - eventually to go to the wound care clinic for weekly check and cleaning. Patient asked about hyperbaric O2 treatment - he was told by one of the treating physicians -- - it is NOT indicated at this time. He does not have vacular compromise and the wounds should heal with simple local care. Will discuss possibility of skin graft in future. Objective Vital Signs: Vital Signs - 24 hr 05/31/18 12:00 05/31/18 16:00 05/31/18 20:00 Temperature 98.6 F 98.0 F 98.1 F Pulse Rate 81 86 91 H Respiratory Rate 23 23 18 Blood Pressure 93/55 L 128/58 L 107/63 Pulse Oximetry 97 97 94 L 06/01/18 00:00 06/01/18 04:00 06/01/18 05:00 Temperature 98 F 98 F Pulse Rate 83 75 Respiratory Rate 18 18 17 Blood Pressure 133/58 L 104/50 L Pulse Oximetry 95 92 L Intake & Output 05/30/18 05/31/18 06/01/18 06/02/18 06:59 06:59 06:59 06:59 Intake Total 6136 / 6136 6675 / 6675 2049 / 2049 Output Total 4275 / 4275 1800 / 1800 1000 / 1000 Balance 1861 / 1861 4875 / 4875 1050 / 1050 Weight 59.6 kg 61.1 kg Laboratory Results: Laboratory Results - last 24 hr 06/01/18 08:45 Vancomycin Trough 3.4 L Result Diagrams: 05/27/18 06:07 05/31/18 06:00
[2018-06-02 01:40] VITALS: RESP 18
[2018-06-02] MEDS: oxyCODONE/Acetaminophen 10/325 Tablet PO PRN ×5 (01:47→22:55)
[2018-06-02] MEDS: Morphine Inj 4 MG/ML Vial IV.PUSH PRN ×4 (03:12→19:54)
[2018-06-02] MEDS: metroNIDAZOLE 500 MG Tablet PO SCH ×3 (06:30→22:56)
[2018-06-02] MEDS: Enoxaparin Inj 30 MG/0.3 ML Syringe SQ SCH (08:01)
[2018-06-02] MEDS: Escitalopram 10 MG Tablet PO SCH (08:01)
[2018-06-02] MEDS: Fluconazole 100 MG Tablet PO SCH (08:01)
[2018-06-02] MEDS: Senna/Docusate Sodium 8.6/50 MG Tablet PO SCH ×2 (08:03→20:01)
--- NOTE | 2018-06-02 08:40 | P.PNIM ---
Subjective Interval history: pain with bandage changes. tolerating meals had bm Physical Exam Vital signs: Vital Signs 06/01/18 12:00 06/01/18 18:00 06/01/18 20:00 Temperature 97.8 F 98.4 F 98.9 F Pulse Rate 90 113 H 94 H Respiratory Rate 20 20 18 Blood Pressure 120/56 L 96/63 L 96/67 L Pulse Oximetry 96 96 96 06/02/18 00:00 06/02/18 04:00 Temperature 98.9 F 97.8 F Pulse Rate 82 68 Respiratory Rate 18 18 Blood Pressure 113/72 110/64 Pulse Oximetry 97 97 Intake & Output 06/01/18 06/02/18 06/02/18 18:59 06:59 18:59 Intake Total 1400 / 1400 100 / 100 Output Total 750 / 750 Balance 1400 / 1400 -650 / -650 Weight 59.3 kg Intake: IV 200 / 200 100 / 100 Maxipime Inj 2,000 MG In NS Inj 200 / 200 100 / 100 100 ML @ 200 mls/hr IV.SIG Q8H [facility] Rx#:[id number] Oral 1200 / 1200 Output: Urine 750 / 750 Other: # Voids 2 Date of Last Bowel Movement 06/01/18 # Bowel Movements 1 wound axillary/groin/buttock bandaged lung cta ext no pitting Results - Labs CBC & Chem 7: 05/27/18 06:07 06/02/18 07:30 Laboratory Results - last 24 hr 06/01/18 08:45 Vancomycin Trough 3.4 L Assessment and Plan - Assessment (1) Hidradenitis suppurativa Code(s): L73.2 - Hidradenitis suppurativa Status: Acute Plan: Hidradenitis suppurativa and Cellulitis of Right axilla, bilateral groin and bilateral buttocks per patient these areas have been intermittently draining over since 2013 Patient has previously had excision of the right axilla patient has follows with outpatient dermatology Dr. Joshua and SEFERINO Dhaliwal and has previously been on Zyvox, ciprofloxacin, rifampin and clindamycin - comgmt with ID & Plastics - Case d/w Dr. Royal (05/24). Pt planned for surgical excision of regions affected by hidradenitis, likely 05/27 or 05/28 - Case d/w Dr. Vaca (05/25) - Cefepime (05/24 - present) - Vancomycin (05/23 - present) - Flagyl (05/26 - present) - Diflucan (05/26 - present - thigh wound cx --> mixed anaerobe, E. Coli - buttock wound cx --> E. Coli, Group D Strep, Denisse - buttock wound cx --> E. Coli Klebsiella, enterococcus - blood cultures pending --> NGTD - norco/morphine, dosing decreased d/t hypotension - RPR --> neg - hepatitis panel --> negative - HIV --> neg 05/27. 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 efforts to limit iv morphine and use po percocet. wound care per plastics plan for dc to snf for wound care/med management tomorrow with weekly visits to [facility] wound care clinic. discussed dc abx with ID. will be po flagyl,diflucan,doxy x 10days added on nutritional supplement addendum: After discussing with Dr Mane, we both feel given the complexity of wound care and PT he would best be served at [place] if he can be admitted to that unit. Will check if possible today. Depression Continue home Lexapro DVT prophylaxis with SCDs (2) Cellulitis of multiple sites of buttock Code(s): L03.317 - Cellulitis of buttock Status: Acute
[2018-06-02 09:02] LABS: Glomerular Filtration Rate Greater Than 89 mL/min (>89)
[2018-06-03] MEDS: oxyCODONE/Acetaminophen 10/325 Tablet PO PRN ×3 (02:42→11:32)
[2018-06-03] MEDS: metroNIDAZOLE 500 MG Tablet PO SCH ×2 (05:55→14:34)
[2018-06-03] MEDS: Morphine Inj 4 MG/ML Vial IV.PUSH PRN (05:58)
[2018-06-03 09:31] VITALS: O2SAT 98
[2018-06-03] MEDS: Senna/Docusate Sodium 8.6/50 MG Tablet PO SCH (10:01)
[2018-06-03] MEDS: Enoxaparin Inj 30 MG/0.3 ML Syringe SQ SCH (10:01)
[2018-06-03] MEDS: Escitalopram 10 MG Tablet PO SCH (10:01)
--- NOTE | 2018-06-03 10:54 | P.PNIM ---
Subjective Interval history: Pt with NO new medical complaints. Pain is controlled. Pt still requiring complete care for ADLs: ambulation, toileting, wound care. Physical Exam Vital signs: 06/03/18 08:00 Temperature 97.9 F Pulse Rate 81 Respiratory Rate 18 Blood Pressure 112/56 L Pulse Oximetry 98 Narrative: GENERAL: thin 37 year old male patient, in no acute distress SKIN: dressing at surgical sites c/d/i HEAD: Normocephalic. EYES: No scleral icterus. No injection or drainage. CARDIOVASCULAR: Regular rate and rhythm RESPIRATORY: Breath sounds equal bilaterally. No accessory muscle use. GASTROINTESTINAL: Abdomen soft, non-tender, nondistended. Results - Labs CBC & Chem 7: 05/27/18 06:07 06/02/18 07:30 Assessment and Plan - Assessment (1) Hidradenitis suppurativa Code(s): L73.2 - Hidradenitis suppurativa Status: Acute Plan: Hidradenitis suppurativa and Cellulitis of Right axilla, bilateral groin and bilateral buttocks per patient these areas have been intermittently draining over since 2013 Patient has previously had excision of the right axilla patient has follows with outpatient dermatology Dr. Joshua and ID Paz Dhaliwal and has previously been on Zyvox, ciprofloxacin, rifampin and clindamycin - comgmt with ID & Plastics - Case d/w Dr. Royal (05/24). Pt planned for surgical excision of regions affected by hidradenitis, likely 05/27 or 05/28 - Case d/w Dr. Vaca (05/25) - Cefepime (05/24 - present) - Vancomycin (05/23 - 05/31/18) - Flagyl (05/26 - present) - Diflucan (05/26 - present) - thigh wound cx --> mixed anaerobe, E. Coli - buttock wound cx --> E. Coli, Group D Strep, Denisse - buttock wound cx --> E. Coli Klebsiella, enterococcus - blood cultures pending --> NGTD - norco/morphine, dosing decreased d/t hypotension - RPR --> neg - hepatitis panel --> negative - HIV --> neg - Pt underwent surgical resection of hydradenitis groin/buttock/thigh/axillary - Pain mgmt with PO percocet. 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 Eg. dressing changes. - continue wound care per recommendations of Plastic Surgeon. - Pt needing high level of care: ADLs, ambulation, dressing changes, and toileting. - Per ID recommendations pt will require PO flagyl,diflucan,doxy x 10days - Pt currently being evaluated for transfer to [place] - await safe discharge arrangements. Depression Continue home Lexapro DVT prophylaxis with SCDs (2) Cellulitis of multiple sites of buttock Code(s): L03.317 - Cellulitis of buttock Status: Acute
[2018-06-03 13:07] VITALS: BP 101/54; PULSE 78; TEMP 98.3
--- NOTE | 2018-06-03 13:43 | P.OP ---
Preoperative Diagnosis: extensive hidradenitis involving 1 Right Axilla 2 Right groin and thigh 3 Left groin and thigh 4 Perineum, both buttocks and perianal skin Postoperative Diagnosis: extensive hidradenitis involving 1 Right Axilla 2 Right groin and thigh 3 Left groin and thigh 4 Perineum, both buttocks and perianal skin Date of procedure: 05/27/18 Procedure: Wide Exision extensive hidradenitis involving 1 Right Axilla 15 x10 cm approx 2 Right groin and thigh 20 x 15 cm approx 3 Left groin and thigh 18 x 15 cm approx 4 Perineum, both buttocks and perianal skin 15 x 10 cm total approx Anesthesia: GETA Surgeon: Cain Royal MD Retail Merchandiser Technician: Leyda Farfan Rn Estimated blood loss (mL): 150 Operation and Findings: Indications: Patient has large areas of active hidradenitis in the RIght axilla, both groins and thighs, perineum and both buttocks, - the base of scrotum was found to be inflamed and edematous but not directly affected by the disease process. Patient has undergone numerous medical treatments and is aware of the radical wide excision of all disease bearing skin as the most likely curative treatment. He was also advised of the size of the wounds and initial open wound care - his own willingness to address the wounds at home in addition to the nursing care being provided was stressed. He is willing to go ahead with surgery and postoperative wound healing. Split thickness skin graft was discussed as well but will be considered at a later date. He is also prone to higher chances of Keloid due to the pigmented skin type. Understands that the inflamed tissues are likely to bleed in the perioperative period , even when the blood loss in operating room is controlled by tumescent fluids, epinephrine and cautery as well as surgical ligature of larger blood vessels. He may need a blood transfusion and is willing to accept it in future if needed. Procedure: preoperative site marking was done in holding, patient was brought to the OR. Anesthesia started, prep and drape done, time out completed, patient is on multiple IV antibiotics already. Tumescent mix of 1000 cc NS, 30 CC Lidocaine with Epi and 1 cc additional Epi mix usedper bag - total 1800 cc used. Tissues surrounding and under the diseased skin tumesced individually in small segments. First the right axilla excision carried out - sharp excision using cautery both coag and cutting, tissue plane in normal fat maintained - working deeper along the tracking disease. The lateral border of Pectoralis major was exposed - the fascia here was carefully removing all diseased tissues , taken in to the axilla carefully avoiding the neurovascular structures underneath. Some of the areas needed to be surface cauterized in order to limit the exposure of important structures. Hemostasis completed with suture ligatures and cautery as needed. Area covered in wet lap. Surgery continued on the bilateral groins, thighs and buttocks, also the central perineal skin close to the median raphe, but it was possible to save the median raphe and the scrotal base skin. Excision of all diseased tissues completed as thoroughly as possible. Hemostasis again completed all around the skin edges, the dermal layers and all larger vessels as they were encountered. Approximate blood loss 150 cc total estimated. All areas rinsed and cleaned with saline, dressed with Xeroforms and wet ABD pads. Mesh panties for the lower extremities and perineum, tape for Right axiall. Patient remained stable, no complications.
--- NOTE | 2018-06-09 09:20 | P.DS ---
<Felicitas Darden W - Last Filed: 06/09/18 09:18> Date of admission: 05/23/18 19:49 Primary care physician: PROVIDER NON STAFF Attending physician on discharge: Getachew Mane Anticipated date of discharge: 06/03/18 Brief History from admission: [facility] narrative: 37-year-old male with history of hidradenitis suppurativa who presents for evaluation of buttock/groin pain, redness, purulent drainage. He reports that he has been battling his condition for years, gradually getting worse. He reports that for the past few months he has had worsening pain in swelling and drainage in the groin region. He reports that one month ago he was started on rifampin 500 mg twice a day and clindamycin 300 mg twice a day which she has been using as prescribed by his kier operator. Symptoms have worsened over the past several days. He called his kier operator who recommended that he come to the emergency room. He reports chills and myalgias as well. Symptoms are are moderate, aggravated by sitting with no alleviating factors. He has no other complaints at this time. In the ER patient was started on Levaquin and vancomycin cultures of the wounds have been obtained also blood as patient does have a white blood cell count of 17,000. Based on repeat labs in the morning he may need infectious disease consult. Denies chest pain shortness of breath nausea vomiting diarrhea. DS: Diagnosis - Discharge Diagnosis (1) Hidradenitis suppurativa Status: Acute (2) Cellulitis of multiple sites of buttock Status: Acute DS: Medications - Discharge Medications Prescriptions: doxycycline hyclate 100 mg PO BID 10 Days #20 cap fluconazole 100 mg PO DAILY #10 tab metronidazole 500 mg PO Q8HR 10 Days tab oxycodone-acetaminophen 1 tab PO Q4H PRN #30 tab PRN Reason: pain 3-10 DS: Summary Hospital Course: Hidradenitis suppurativa and Cellulitis of Right axilla, bilateral groin and bilateral buttocks per patient these areas have been intermittently draining over since 2013 Patient has previously had excision of the right axilla patient has follows with outpatient dermatology Dr. Joshua and SEFERINO Dhaliwal and has previously been on Zyvox, ciprofloxacin, rifampin and clindamycin - comgmt with [facility] - Case d/w Dr. Royal (05/24). Pt planned for surgical excision of regions affected by hidradenitis, likely 05/27 or 05/28 - Case d/w Dr. Vaca (05/25) - Cefepime (05/24 - present) - Vancomycin (05/23 - 05/31/18) - Flagyl (05/26 - present) - Diflucan (05/26 - present) - thigh wound cx --> mixed anaerobe, E. Coli - buttock wound cx --> E. Coli, Group D Strep, Denisse - buttock wound cx --> E. Coli Klebsiella, enterococcus - blood cultures pending --> NGTD - norco/morphine, dosing decreased d/t hypotension - RPR --> neg - hepatitis panel --> negative - HIV --> neg - Pt underwent surgical resection of hydradenitis groin/buttock/thigh/axillary - Pain mgmt with PO percocet. 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 Eg. dressing changes. - continue wound care per recommendations of Plastic Surgeon. - Pt needing high level of care: ADLs, ambulation, dressing changes, and toileting. - Per ID recommendations pt will require PO flagyl,diflucan,doxy x 10days - Pt currently being evaluated for transfer to [place] - await safe discharge arrangements. Depression Continue home Lexapro DVT prophylaxis with SCDs - Time Spent with Patient Total time spent providing and/or coordinating discharge services: Greater than 30 minutes - Quality: VTE Deep Vein Thrombosis/Pulmonary Embolism Present on Admission: No Exam Narrative: GENERAL: thin 37 year old male patient, in no acute distress SKIN: dressing at surgical sites c/d/i HEAD: Normocephalic. EYES: No scleral icterus. No injection or drainage. CARDIOVASCULAR: Regular rate and rhythm RESPIRATORY: Breath sounds equal bilaterally. No accessory muscle use. GASTROINTESTINAL: Abdomen soft, non-tender, nondistended. Results Procedures completed during hospitalization: Date of procedure: 05/27/18 Procedure: Wide Exision extensive hidradenitis involving 1 Right Axilla 15 x10 cm approx 2 Right groin and thigh 20 x 15 cm approx 3 Left groin and thigh 18 x 15 cm approx 4 Perineum, both buttocks and perianal skin 15 x 10 cm total approx With Dr. Royal Completed studies during hospitalization: Pending at discharge 05/27/18 07:57 Surgical [PTH] Routine - Impressions ITS Impressions Pelvis CT 05/23/18 18:00 CONCLUSION: 1. Increased density seen in the subcutaneous fat at the posterior and inferior medial gluteal regions bilaterally being more prominent on the left. Extends into the perineum. There is some air within the subcutaneous soft tissues on the left. This would be consistent with a superficial skin inflammatory/infectious process. No abscess is seen. 2. Inguinal adenopathy. 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 Chest X-Ray 05/24/18 00:00 CONCLUSION: Negative for an acute process <Getachew Mane - Last Filed: 06/09/18 16:06> Date of admission: 05/23/18 19:49 Primary care physician: PROVIDER NON STAFF DS: Diagnosis - Discharge Diagnosis (1) Hidradenitis suppurativa Status: Acute (2) Cellulitis of multiple sites of buttock Status: Acute DS: Summary Hospital Course: The exam, history, and the medical decision-making described in the above note were completed with the assistance of the mid-level provider. I reviewed and agree with the findings presented. I attest that I had a [id number] encounter with the patient on the same day, and personally performed and documented my assessment and findings in the medical record. Patient examined. Assessment and plan formulated with Felicitas Darden PA-C. I agree with the above. - Time Spent with Patient Total time spent providing and/or coordinating discharge services: Greater than 30 minutes Results Completed studies during hospitalization: Pending at discharge 05/27/18 07:57 Surgical [PTH] Routine - Impressions ITS Impressions Pelvis CT 05/23/18 18:00 CONCLUSION: 1. Increased density seen in the subcutaneous fat at the posterior and inferior medial gluteal regions bilaterally being more prominent on the left. Extends into the perineum. There is some air within the subcutaneous soft tissues on the left. This would be consistent with a superficial skin inflammatory/infectious process. No abscess is seen. 2. Inguinal adenopathy. 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 Chest X-Ray 05/24/18 00:00 CONCLUSION: Negative for an acute process Discharge Plan - Discharge Order Discharge Orders: Discharge Order (Routine); Ordered 06/03/18 Ordered By: Natalia Gaines Plastic Surgery Clear for Discharge (Routine); Ordered 06/01/18 Ordered By: Cain Royal - Discharge Details Anticipated Discharge Date: 06/03/18 - Physicians Team Primary Care Provider: NON STAFF,PROVIDER Attending Provider: Getachew Mane Other Providers: Veronica Vaca MD ; Cain Royal MD ; [facility],[place]
== END 2018-06-03 15:36 ==
LOC: NEPC 17:05 → NEDA 19:49 → N04 23:59
PROVIDERS: ADMIT Hospitalist; ATTEND Hospitalist

== ENCOUNTER 2018-10-02 11:00 | Observation (INO) ==
[2018-10-02] MEDS ORDERED: Clindamycin 900 mg/NS Premix 900 MG/50 ML PIGGYBACK IV.SIG ONE ×2 (13:11→13:15)
[2018-10-02] MEDS ORDERED: Metoprolol Tartrate 25 MG Tablet PO ONE (13:15)
[2018-10-02] MEDS ORDERED: Sodium Chlor 0.9% Inj 500 ML IV.CONT ONE (13:15)
[2018-10-02] MEDS ORDERED: Chlorhexidine Gluconate 2% 1 Pack (2 Cloths) TOPICAL ONE (13:15)
[2018-10-02] MEDS ORDERED: Lidocaine 1%/Epinephrine 1:100,000 Inj 50 ML Vial ONE (14:09)
[2018-10-02] MEDS ORDERED: Lidocaine PF 1% Inj 5 ML Syringe INFILTRATN ONE (14:16)
--- NOTE | 2018-10-02 15:34 | P.OP ---
Preoperative Diagnosis: Multiple hidradenitis areas - both groins / inguinal, Right side scrotum, Right buttock, Left buttock Postoperative Diagnosis: Multiple hidradenitis areas - both groins / inguinal, Right side scrotum, Right buttock, Left buttock - total 11 areas Procedure: Multiple hidradenitis areas - both groins / inguinal, Right side scrotum, Right buttock, Left buttock - excision of total 11 areas - converted to 8 large areas of excision - partial closures of three areas. Surgeon: Cain Royal MD Estimated blood loss (mL): 5 Operation and Findings: Indications: Patient has multiple hidradenitis areas involving groins, scrotum , perineum, buttocks and thighs - he has undergone major excision of large areas approx 3-4 months ago by myself and has healed very well in most area. Currently there are 1o new areas of active draining hidradenitis tracks have formed and also on the left buttock there is an undermined area of skin flap from last surgery that has not closed and seems to drain mucopurulent fluid from anther area of hidradenitis inside. Patient is well aware of the surgery, risks, possible complications, particularly post op bleeding from inflamed tissues. pain, wound care etc. He is ready to go ahead with surgery Procedure: Preop work completed in holding. Patient brought to the OR, anesthesia started, IV antibiotics in, Positioned in lithotomy, prep and drape done. All visible and palpable new areas marked with pen, - total 11 new areas - converted in 8 areas of excision - ranging from 3 cm diameter to 6x4 cm largest area Dilute mix of lidocaine with Epi and saline injected in all areas and around the areas for hemostasis and hydrodissection. All areas excised with cutting bovie current and coagulating bovie current, hemostasis meticulously completed at the same time. The upper large defect on the right side of the scrotum had parts of the dartos fascia exposed and it was closed with 3/0 vicryl sutures internal only. The two defects on the right and left inguinal areas also closed loosely, allowing any future drainage or bleeding to escape. There are three large areas on the right buttock and one large area on the left buttock, these were left open as the surrounding tissues are very fibrotic from the healing over last 3-4 months. All areas cleaned and sterile dressings applies. Patient stable, no complications, EBL less than 5 cc. Cain Royal MD
[2018-10-02] MEDS ORDERED: fentaNYL Citrate Inj 100 MCG/2 ML Ampul ONE (15:36)
[2018-10-02] MEDS: Multivitamin/Minerals Therapeutic Tablet PO SCH (18:31)
[2018-10-02] MEDS: oxyCODONE/Acetaminophen 10/325 Tablet PO PRN ×2 (18:32→22:44)
[2018-10-02] MEDS: Ascorbic Acid 500 MG Tablet PO SCH (18:32)
[2018-10-02] MEDS: Morphine Sulfate 30 MG SR Tablet PO SCH (20:08)
[2018-10-03] MEDS: oxyCODONE/Acetaminophen 10/325 Tablet PO PRN ×3 (04:43→17:45)
[2018-10-03] MEDS: Multivitamin/Minerals Therapeutic Tablet PO SCH (08:47)
[2018-10-03] MEDS: Ascorbic Acid 500 MG Tablet PO SCH (08:47)
[2018-10-03] MEDS: Morphine Sulfate 30 MG SR Tablet PO SCH ×2 (08:47→20:21)
[2018-10-03 10:23] VITALS: O2SAT 97
[2018-10-03 13:50] VITALS: BP 115/72; PULSE 88; RESP 16; TEMP 97.8
--- NOTE | 2018-10-03 15:24 | P.PNPLA ---
Subjective Remarks: Patient doing well, pain ok with Rx Vitals normal No bleeding at surgical sites. OK to DC home today, FU in clinic to wound care at [facility] Objective Vital Signs: Vital Signs - 24 hr 10/02/18 15:30 10/02/18 15:35 10/02/18 15:50 Temperature 98.3 F Pulse Rate 92 H 87 87 Respiratory Rate 16 16 16 Blood Pressure 124/59 L 105/56 L 112/58 L Pulse Oximetry 98 98 95 10/02/18 17:08 10/02/18 20:00 10/03/18 00:00 Temperature 98.0 F 97 F L 97 F L Pulse Rate 83 69 55 L Respiratory Rate 16 20 20 Blood Pressure 101/60 103/66 100/53 L Pulse Oximetry 96 98 98 10/03/18 08:00 10/03/18 09:10 10/03/18 12:00 Temperature 98.0 F 97.8 F Pulse Rate 70 88 Respiratory Rate 14 23 16 Blood Pressure 111/64 115/72 Pulse Oximetry 97 97 Intake & Output 10/01/18 10/02/18 10/03/18 10/04/18 06:59 06:59 06:59 06:59 Intake Total 2450 / 2450 Output Total 1220 / 1220 Balance 1230 / 1230 Weight 61.235 kg
== END 2018-10-03 21:10 | disposition home or self-care (01) ==
LOC: PHSDC 11:00 → PH3 11:00
PROVIDERS: ADMIT Plastic Surgery; ATTEND Plastic Surgery
PROC: [UNRECOGNIZED PROCEDURE] (2018-10-02 14:16)